=== PATIENT | female | born 1965 | race Caucasian/White ===

== ENCOUNTER 2016-03-20 05:59 | Emergency (ER) | payer BC, OTHER ==
[~2016-03-20] VITALS: Ht 177.8 cm; Wt 85.0 kg
[~2016-03-20 05:59] MED LIST: PHEN100 PO
[2016-03-20 06:01] VITALS: BP 163/92; PULSE 67; RESP 18; TEMP 97.7; O2SAT 95
[2016-03-20] MEDS ORDERED: DILA100C PO (06:05)
--- NOTE | 2016-03-20 06:18 | PD ---
HPI Chief Complaint: Alcohol/Drug Intoxication Time Seen by Provider: 06:08 Travel History International Travel<30 days: No Contact w/Intl Traveler<30days: No Traveled to known affect area: No History of Present Illness HPI The patient is a 51 year old female who presents to the [facility] emergency department with a history of reportedly calling ambulance services when she found [place] out on [address] and was cold. The patient reports that she went out to the main street celebrate her birthday yesterday. She reports that she had more drinks than usual. She reports that the last drink that she remembers is someone giving her Tequila shot. She reports that she woke up outside and was extremely cold. She reports that she has chronic pain in her right arm and right hip which were worse related to the cold. She reports that she has hardware in the right arm and she has been told that she needs a right hip replacement. The patient reports that she is currently homeless. The patient denies any recent fevers, worsening cough, congestion, neck pain, chest pain, shortness of breath, abdominal pain, vomiting, diarrhea, urinary symptoms, or other neurologic symptoms. [facility] Past Medical History Narrative Medical The patient's past medical history is significant for atraumatic brain injury in the , history of alcohol abuse, history of seizure disorder, history of chronic right arm pain, chronic right hip pain, arthritis. Hx Anticoagulant Therapy: No Blood Disorders: No Bipolar Disorder: Yes Anxiety: Yes Cancer: No Cardiovascular Problems: Yes Chemotherapy: No Chest Pain: Yes Cerebrovascular Accident: No Diabetes: No Diminished Hearing: Yes ([facility] RIGHT EAR) Gastrointestinal Disorders: No Genitourinary: Yes Headaches: Yes Hypertension: Yes Implanted Vascular Access Dvce: No Musculoskeletal: Yes Neurologic: Yes Psychiatric: Yes Reproductive: No Respiratory: No Immunizations Current: Yes Migraines: Yes Radiation Therapy: No Seizures: Yes Tetanus Vaccination: < 5 Years Influenza Vaccination: No PNEUMOCCOCAL Vaccine (Year): 3 ?: Not Menopausal: Yes : 3 Para: 0 Miscarriage: 0 : 3 Past Surgical History Narrative Surgical The patient's past surgical history is significant for right arm ORIF, a hysterectomy, cholecystectomy, pyloric stenosis surgery as an infant Abdominal Surgery: Yes (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 INFANT) AICD: No Arteriovenous Shunt: No Cholecystectomy: Yes Hysterectomy: Yes Insulin Pump: No Joint Replacement: No Pacemaker: No Other Surgery: Yes Social History Alcohol Use: Yes (a 6 pack daily.) Tobacco Use: Yes (1.5 PPD) Substance Use: No Allergies-Medications (Allergen,Severity, Reaction): Coded Allergies: Codeine (Verified Allergy, Severe, Nausea/Vomiting, 03/20/16) Reported Meds & Prescriptions Reported Meds & Active Scripts Active Reported Dilantin (Phenytoin Extended) 100 Mg Cap 300 Mg PO HS She reports that she has not been taking her Dilantin over the last year. Review of Systems Except as stated in HPI: all other systems reviewed are Neg General / Constitutional: No: Fever Eyes: No: Visual changes HENT: No: Headaches Cardiovascular: No: Chest Pain or Discomfort Respiratory: No: Shortness of Breath Gastrointestinal: No: Abdominal Pain Genitourinary: No: Dysuria Musculoskeletal: Positive: Arthralgias, Pain Skin: No Rash Neurologic: No: Weakness, Focal Abnormalities, Change in Mentation, Slurred Speech, Sensory Disturbance Psychiatric: No: Depression Endocrine: No: Polydipsia Hematologic/Lymphatic: No: Easy Bruising Physical Exam Narrative General: The patient is a well-developed well-nourished female in no acute distress. Head and Neck exam: Head is normocephalic atraumatic. Eyes: Pupils are equal round and reactive to light. Nose: Midline septum with pink mucous membranes Mouth: Dentition unremarkable. Moist mucus membranes. Posterior oropharynx is not erythematous. No tonsillar hypertrophy. Uvula midline. Airway patent. Neck: No palpable lymphadenopathy. No nuchal rigidity. No thyromegaly. Cardiovascular: Regular rate and rhythm without murmurs, gallops, or rubs. Lungs: Clear to auscultation bilaterally. No wheezes, rhonchi, or rales. Abdomen: Soft, without tenderness to palpation in all 4 quadrants of the abdomen. No guarding, rebound, or rigidity. Normal bowel sounds are audible. Extremities: No clubbing, cyanosis, or edema. 2+ pulses in all 4 extremities. No calf tenderness on palpation. Back: No costovertebral angle tenderness to palpation. Neurologic Exam: Grossly nonfocal. Skin Exam: No rash noted. Intact skin that is warm and dry. Data Data Last Documented VS Vital Signs Date Time Temp Pulse Resp B/P Pulse Ox O2 Delivery O2 Flow Rate FiO2 03/20/16 06:08 Room Air 03/20/16 06:01 97.7 67 18 163/92 95 MDM Medical Decision Making Medical Screen Exam Complete: Yes Emergency Medical Condition: No Medical Record Reviewed: Yes Differential Diagnosis Hypothermia, versus feeling cold related to being homeless, versus exacerbation of chronic pain. Narrative Course During the course of the patients emergency department visit, the patients history, examination, and differential diagnosis were reviewed with the patient. The patient was placed on a monitor tech with oximetry and blood pressure monitoring. The patient's initial temperature was noted to be 97.7. The patient's vital signs were otherwise unremarkable. The patient is awake and alert. The patient is oriented to person, place, time, and situation. The patient's main concern is that she is cold. She has no one available to drive her home. She reports that she is currently homeless. Case management was contacted regarding this patient's case. The patient will be provided information from case management regarding local shelters. The patient will also be given a taxi voucher or bus pass in order to be transported to a local group home. The patient was placed in a bed with warm blankets. The patient was instructed regarding the importance of decreasing her alcohol intake. The patient is resting comfortably and feels better, is alert and in no distress. The patients examination findings were discussed with the patient. The repeat examination is unremarkable and benign. The history, exam, diagnostic testing, and current condition do not suggest any significant pathology to warrant further testing, continued ED treatment, admission, or surgical evaluation at this point. The vital signs have been stable. The patient does not have uncontrollable pain, intractable vomiting, or other significant symptoms. The patient's condition is stable and appropriate for discharge. The patient will pursue further outpatient evaluation with a primary care physician or other designated or consulting physician as indicated in the discharge instructions. The patient expressed understanding and was agreeable with this plan. Diagnosis Primary Impression: Chronic pain of right upper extremity Additional Impression: Cold exposure Qualified Code: T69.9XXA - Cold exposure, initial encounter Referrals: [facility] Dept. Disposition: 01 DISCHARGE HOME Condition: Stable Crys Boucher MD Mar 20, 2016 06:18
[2016-03-20 10:05] VITALS: BP 116/77; PULSE 80; RESP 16; O2SAT 98
== END 2016-03-20 10:13 | disposition home or self-care (01) ==
LOC: NEPE 05:59
DX: G89.29 Other chronic pain (principal); M79.601 Pain in right arm; Z59.0 Homelessness
CPT/HCPCS: 99283

== ENCOUNTER 2016-06-20 21:07 | Emergency (ER) | payer BC, OTHER ==
[~2016-06-20 21:07] MED LIST changes: +DILA100C PO; -PHEN100 PO
[2016-06-20] MEDS ORDERED: SODIUM CHLORIDE 0.9% FLUSH 10 ML FLUSH IVF PRN (21:30)
[2016-06-20] MEDS ORDERED: SODIUM CHLOR 0.9% 1000 ML INJ 1,000 ML IV ONE (21:30)
[2016-06-20] MEDS ORDERED: LORazepam 2 MG/ML VIAL IV ONE (21:30)
--- NOTE | 2016-06-20 21:31 | PD ---
HPI Chief Complaint: Alcohol Intoxication Time Seen by Provider: 21:20 Travel History International Travel<30 days: No Contact w/Intl Traveler<30days: No History of Present Illness HPI Patient is a 51-year-old female who was brought to the emergency room for alcohol intoxication. As per EMS, patient was found at the bar today intoxicated, reports the patient had fallen 4 times today. Patient admits to drinking 84 packs of beer today, patient reports that she did fall today, denies trauma to head/neck. Reports that she thinks she reinjured her right ankle as she has history of right ankle pain for the past 18 years. Patient requesting x-ray of her right ankle this time. Patient reports that she is not on any anticoagulants at this time. Patient denies suicidal or homicidal ideations PFSH Past Medical History Hx Anticoagulant Therapy: No Blood Disorders: No Bipolar Disorder: Yes Anxiety: Yes Cancer: No Cardiovascular Problems: Yes Chemotherapy: No Chest Pain: Yes Cerebrovascular Accident: No Diabetes: No Diminished Hearing: Yes ([place] RIGHT EAR) Gastrointestinal Disorders: No Genitourinary: Yes Headaches: Yes Hypertension: Yes Implanted Vascular Access Dvce: No Musculoskeletal: Yes Neurologic: Yes Psychiatric: Yes Reproductive: No Respiratory: No Immunizations Current: Yes Migraines: Yes Radiation Therapy: No Seizures: Yes PNEUMOCCOCAL Vaccine (Year): 3 Menopausal: Yes : 3 Para: 0 Miscarriage: 0 : 3 Past Surgical History Abdominal Surgery: Yes (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 INFANT) AICD: No Arteriovenous Shunt: No Cholecystectomy: Yes Hysterectomy: Yes Insulin Pump: No Joint Replacement: No Pacemaker: No Other Surgery: Yes Social History Alcohol Use: Yes (a 6 pack daily.) Tobacco Use: Yes (1.5 PPD) Substance Use: No Allergies-Medications (Allergen,Severity, Reaction): Coded Allergies: Codeine (Verified Allergy, Severe, Nausea/Vomiting, 06/20/16) Reported Meds & Prescriptions Reported Meds & Active Scripts Active Reported Dilantin (Phenytoin Extended) 100 Mg Cap 300 Mg PO HS Review of Systems ROS Limitations: Intoxication Musculoskeletal: Positive: Pain (right ankle pain) Physical Exam Narrative GENERAL: Patient intoxicated SKIN: Focused skin assessment warm/dry. HEAD: Atraumatic. Normocephalic. EYES: Pupils equal and round. No scleral icterus. No injection or drainage. ENT: No nasal bleeding or discharge. Mucous membranes pink and moist. NECK: Trachea midline. No JVD. CARDIOVASCULAR: Regular rate and rhythm. No murmur appreciated. RESPIRATORY: No accessory muscle use. Clear to auscultation. Breath sounds equal bilaterally. GASTROINTESTINAL: Abdomen soft, non-tender, nondistended. Hepatic and splenic margins not palpable. MUSCULOSKELETAL: No obvious deformities. No clubbing. No cyanosis. No edema. Patient with pain with range of motion to the right ankle, no obvious deformities or fractures NEUROLOGICAL: Awake and alert. PSYCHIATRIC: Patient intoxicated, yelling and screaming at bedside Data Data Last Documented VS Vital Signs Date Time Temp Pulse Resp B/P Pulse Ox O2 Delivery O2 Flow Rate FiO2 06/20/16 22:00 97.6 79 18 126/92 95 Orders Complete Blood Count With Diff (06/20/16 21:23) Comprehensive Metabolic Panel (06/20/16 21:23) Iv Access Insert/Monitor (06/20/16 21:23) Ecg Monitoring (06/20/16 21:23) Psych Screen (06/20/16 21:23) Sodium Chloride 0.9% Flush (Ns Flush) (06/20/16 21:30) Lorazepam Inj (Ativan Inj) (06/20/16 21:30) Drug Screen, Random Urine (06/20/16 21:23) Alcohol (Ethanol) (06/20/16 21:23) Ct Brain W/O Iv Contrast(Rout) (06/20/16 21:23) Ankle, Complete (Ray9ezg) (06/20/16 ) Sodium Chlor 0.9% 1000 Ml Inj (Ns 1000 M (06/20/16 21:30) Labs Laboratory Tests Test 06/20/16 22:09 White Blood Count 5.3 TH/MM3 Red Blood Count 3.89 MIL/MM3 Hemoglobin 13.5 GM/DL Hematocrit 38.2 % Mean Corpuscular Volume 98.3 FL Mean Corpuscular Hemoglobin 34.7 PG Mean Corpuscular Hemoglobin 35.3 % Concent Red Cell Distribution Width 12.8 % Platelet Count 154 TH/MM3 Mean Platelet Volume 9.7 FL Neutrophils (%) (Auto) 44.6 % Lymphocytes (%) (Auto) 41.2 % Monocytes (%) (Auto) 9.6 % Eosinophils (%) (Auto) 3.5 % Basophils (%) (Auto) 1.1 % Neutrophils # (Auto) 2.3 TH/MM3 Lymphocytes # (Auto) 2.2 TH/MM3 Monocytes # (Auto) 0.5 TH/MM3 Eosinophils # (Auto) 0.2 TH/MM3 Basophils # (Auto) 0.1 TH/MM3 CBC Comment DIFF FINAL Differential Comment Sodium Level 142 MEQ/L Potassium Level 4.1 MEQ/L Chloride Level 106 MEQ/L Carbon Dioxide Level 29.8 MEQ/L Anion Gap 6 MEQ/L Blood Urea Nitrogen 7 MG/DL Creatinine 0.97 MG/DL Estimat Glomerular Filtration 60 ML/MIN Rate Random Glucose 93 MG/DL Calcium Level 8.2 MG/DL Total Bilirubin 0.3 MG/DL Aspartate Amino Transf 114 U/L (AST/SGOT) Alanine Aminotransferase 119 U/L (ALT/SGPT) Alkaline Phosphatase 84 U/L Total Protein 8.9 GM/DL Albumin 4.1 GM/DL Ethyl Alcohol Level 293 MG/DL [facility] Medical Decision Making Medical Screen Exam Complete: Yes Emergency Medical Condition: Yes Differential Diagnosis Alcohol intoxication, intracranial hemorrhage, electrolyte abnormality, ankle sprain versus ankle fracture vs chronic ankle pain Narrative Course Patient is a 51-year-old female with history of alcoholism, presents to emergency room intoxicated. As per EMS, patient drank 8- 4 packs of beer today. Patient was found intoxicated at a bar, reports that she had fallen a few times today and was complaining of right-sided ankle pain. Patient intoxicated while the emergency room, she denies any trauma the head or neck, she is heavily intoxicated. Plan to obtain CT of the head to rule out intracranial hemorrhage. Plan to x-ray her ankle to evaluate for possible fracture. Will administer IV fluids as well as Ativan as patient is yelling and screaming while in the emergency room and require sedation. Diagnosis Primary Impression: Alcohol intoxication Qualified Code: F10.120 - Alcohol intoxication, uncomplicated Additional Impression: High ankle sprain of right lower extremity Qualified Code: S93.431A - High ankle sprain of right lower extremity, initial encounter Patient Instructions: General Instructions Additional Instructions: Please drink alcohol responsibly Return to ER if symptoms worsen or progress Please follow up with your primary care doctor Lianne Avila DO June 20, 2016 21:31
--- NOTE | 2016-06-20 21:46 | RADRPT ---
EXAM DATE/TIME: 06/20/2016 21:34 [facility] COMPARISON: No previous studies available for comparison. INDICATIONS : Right ankle pain post fall. MEDICAL HISTORY : None. SURGICAL HISTORY : None. ENCOUNTER: Initial ACUITY: 1 day PAIN SCORE: 10/10 LOCATION: Right ankle. FINDINGS: Three view exam was performed of the right ankle. The bony structures are in normal alignment. No e vidence of fracture, dislocation, or soft tissue swelling. The ankle mortise is intact. No radiopaq ue foreign bodies are seen. Bony mineralization is normal. CONCLUSION: Negative trauma study. Mark Gonzalez MD on June 20, 2016 at 21:41 Board Certified Radiologist. This report was verified electronically.
[2016-06-20 22:00] VITALS: BP 126/92; PULSE 79; RESP 18; TEMP 97.6; O2SAT 95
--- NOTE | 2016-06-20 22:00 | RADRPT ---
EXAM DATE/TIME: 06/20/2016 21:44 [facility] COMPARISON: CT BRAIN W/O CONTRAST, August 31, 2015, 2:07. INDICATIONS : Trauma. Fall. RADIATION DOSE: 41.34 CTDIvol (mGy) MEDICAL HISTORY : Cardiovascular disease. Hypertension. Seizures. SURGICAL HISTORY : Hysterectomy. Cholecystectomy. ENCOUNTER: Initial ACUITY: 1 day PAIN SCALE: 0/10 LOCATION: Head. TECHNIQUE: Multiple contiguous axial images were obtained of the head. Using automated exposure control and adj ustment of the mA and/or kV according to patient size, radiation dose was kept as low as reasonably a chievable to obtain optimal diagnostic quality images. FINDINGS: CEREBRUM: The ventricles are normal for age. No evidence of midline shift, mass lesion, hemorrhage or acute in farction. No extra-axial fluid collections are seen. POSTERIOR FOSSA: The cerebellum and brainstem are intact. The 4th ventricle is midline. The cerebellopontine angle i s unremarkable. EXTRACRANIAL: The visualized portion of the orbits is intact. SKULL: The calvaria is intact. No evidence of skull fracture. CONCLUSION: Negative trauma CT. Mark Gonzalez MD on June 20, 2016 at 21:58 Board Certified Radiologist. This report was verified electronically.
[2016-06-20 22:21] LABS: AUTOMATED NEUTROPHIL # 2.3 TH/MM3 (1.8-7.7); BASOPHIL # 0.1 TH/MM3 (0-0.2); BASOPHIL % 1.1 % (0.0-2.0); EOSINOPHIL # 0.2 TH/MM3 (0-0.4); EOSINOPHIL % 3.5 % (0.0-4.0); HEMATOCRIT 38.2 % (35.0-46.0); HEMO FLAGS DIFF FINAL; LYMPH % 41.2 % (9.0-44.0); LYMPHOCYTE # 2.2 TH/MM3 (1.0-4.8); MEAN CELL VOLUME 98.3 FL (80.0-100.0); MEAN CORPUSCULAR HEMOGLOBIN 34.7 PG (27.0-34.0); MEAN CORPUSCULAR HGB CONC 35.3 % (32.0-36.0); MONO % 9.6 % (0.0-8.0); NEUT % 44.6 % (16.0-70.0); PLATELET COUNT 154 TH/MM3 (150-450); RED BLOOD COUNT 3.89 MIL/MM3 (4.00-5.30); RED CELL DISTRIBUTION WIDTH 12.8 % (11.6-17.2); WHITE BLOOD COUNT 5.3 TH/MM3 (4.0-11.0)
[2016-06-20 22:57] LABS: ALKALINE PHOSPHATASE 84 U/L (45-117); ALT (GPT) 119 U/L (10-53); ANION GAP 6 MEQ/L (5-15); AST (GOT) 114 U/L (15-37); BICARBONATE 29.8 MEQ/L (21.0-32.0); BLOOD UREA NITROGEN 7 MG/DL (7-18); CHLORIDE 106 MEQ/L (98-107); GLOMERULAR FILTRATION RATE 60 ML/MIN (>89); POTASSIUM 4.1 MEQ/L (3.5-5.1); SODIUM (NA) 142 MEQ/L (136-145); TOTAL BILIRUBIN ADULT 0.3 MG/DL (0.2-1.0)
[2016-06-21 01:00] VITALS: PULSE 74; RESP 16; O2SAT 96
[2016-06-21 06:18] VITALS: BP 116/75; PULSE 67; RESP 17; O2SAT 94
== END 2016-06-21 06:54 | disposition home or self-care (01) ==
LOC: NEPD 21:07
DX: F10.120 Alcohol abuse with intoxication, uncomplicated (principal); Y90.8 Blood alcohol level of 240 mg/100 ml or more; S93.431A Sprain of tibiofibular ligament of right ankle, initial encounter; W19.XXXA Unspecified fall, initial encounter; Z79.899 Other long term (current) drug therapy
CPT/HCPCS: 70450; 73610; 80053; 80307; 85025; 96361; 96374; 99284; J2060; J7030

== ENCOUNTER 2016-07-23 18:31 | Emergency (ER) | payer OTHER ==
[~2016-07-23] VITALS: Ht 154.9 cm; Wt 55.0 kg
[2016-07-23 18:33] VITALS: BP 130/87; PULSE 79; RESP 16; TEMP 98.2; O2SAT 99
== END 2016-07-23 19:22 | disposition left against medical advice (07) ==
LOC: NED 18:31
DX: R52 Pain, unspecified (principal)
CPT/HCPCS: 99281

== ENCOUNTER 2016-08-03 15:43 | Emergency (ER) | payer OTHER ==
[~2016-08-03] VITALS: Ht 165.1 cm; Wt 80.0 kg
[2016-08-03 15:46] VITALS: BP 145/90; PULSE 77; RESP 16; O2SAT 97
[2016-08-03] MEDS ORDERED: KETOROLAC TROMETHAMINE 60 MG/2 ML (IM) VIAL IM ONE (16:30)
--- NOTE | 2016-08-03 16:41 | PD ---
HPI Chief Complaint: Pain: Acute or Chronic Time Seen by Provider: 16:00 Travel History International Travel<30 days: No Contact w/Intl Traveler<30days: No Traveled to known affect area: No History of Present Illness HPI Patient comes in complaining of right ankle pain has been worse over the past 8 days. Patient states she falls frequently does not specifically remember injuring it. Patient denies hitting her head, chest pain, shortness of breath, loss consciousness, nausea, vomiting, abdominal pain, chest pain, shortness breath, fevers, or numbness or tingling anywhere. Patient states she drinks to deal with her chronic pain. Patient states he last drank approximately hour prior to coming to the emergency department. Patient denies anything else for this. Patient states pain is worse with walking and when it rains. PFSH Past Medical History Hx Anticoagulant Therapy: No Blood Disorders: No Bipolar Disorder: Yes Anxiety: Yes Cancer: No Cardiovascular Problems: Yes Chemotherapy: No Chest Pain: Yes Cerebrovascular Accident: No Diabetes: No Diminished Hearing: Yes ([facility] RIGHT EAR) Gastrointestinal Disorders: No Genitourinary: Yes Headaches: Yes Hypertension: Yes Implanted Vascular Access Dvce: No Musculoskeletal: Yes Neurologic: Yes Psychiatric: Yes Reproductive: No Respiratory: No Immunizations Current: Yes Migraines: Yes Radiation Therapy: No Seizures: Yes PNEUMOCCOCAL Vaccine (Year): 3 ?: Not Menopausal: Yes : 3 Para: 0 Miscarriage: 0 : 3 Past Surgical History Abdominal Surgery: Yes (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 INFANT) AICD: No Arteriovenous Shunt: No Cholecystectomy: Yes Hysterectomy: Yes Insulin Pump: No Joint Replacement: No Pacemaker: No Other Surgery: Yes Social History Alcohol Use: Yes (a 6 pack daily.) Tobacco Use: Yes (1.5 PPD) Substance Use: No Allergies-Medications (Allergen,Severity, Reaction): Coded Allergies: Codeine (Verified Allergy, Severe, Nausea/Vomiting, 08/03/16) Reported Meds & Prescriptions Reported Meds & Active Scripts Active No Active Prescriptions or Reported Medications Review of Systems Except as stated in HPI: all other systems reviewed are Neg Physical Exam Narrative GENERAL: Well-developed, overly nourished, in no acute distress, and non-ill appearing. SKIN: Focused skin assessment warm and dry. HEAD: Atraumatic. Normocephalic. EYES: Pupils equal and round. EOMI. No scleral icterus. No injection or drainage. ENT: No nasal bleeding or discharge. Mucous membranes pink and moist. NECK: Trachea midline. Supple. No nuclear rigidity. CARDIOVASCULAR: Dorsal pulses 2+, intact, equal bilaterally. Capillary refill less than 2 seconds. RESPIRATORY: No accessory muscle use. No respiratory distress. MUSCULOSKELETAL: No obvious deformities. No clubbing. No cyanosis. No edema. Full range of motion. Mild soft tissue swelling noted right ankle. Ankle: Neagative anterior draw and Jane test. Negative Robert's sign. No laxity noted with passive inversion and eversion of BL ankles. Negative squeeze test. Pulses equal BL distal to injury. Capillary refill less than 2 seconds distal to injury and equal BL. Sensation equal BL 1st web space. FROM of toes distal to injury and equal BL. NV intact distal to injury and equal BL. Dorsal pulses equal BL. Patient ambulating around room. NEUROLOGICAL: Awake and alert. No obvious cranial nerve deficits. Motor grossly within normal limits. Normal speech. PSYCHIATRIC: Appropriate mood and affect; insight and judgment normal. Data Data Last Documented VS Vital Signs Date Time Temp Pulse Resp B/P Pulse Ox O2 Delivery O2 Flow Rate FiO2 08/03/16 17:00 88 16 152/90 98 Room Air Orders Ankle, Complete ([id number]) (08/03/16 ) Ketorolac Inj (Toradol Inj) (08/03/16 16:30) Splint Or Brace Apply/Monitor (08/03/16 17:30) [facility] Medical Decision Making Medical Screen Exam Complete: Yes Emergency Medical Condition: Yes Interpretation(s) Right ankle x-ray read by the radiologist shows: 1. Soft tissue swelling involving the medial malleolus and to a lesser extent the lateral malleolus. 2. No acute fracture or dislocation. Differential Diagnosis Sprain, fracture, dislocation, other Narrative Course There is no clinical evidence for fracture. There is no clinical evidence to suspect bony injury by exam. Radiographic examination revealed no fracture seen at this time. No obvious ligamental injury or internal derangement is noted at this time. The distal extremity appears neurovascularly intact, without evidence of neurovascular injury nor compartment syndrome. Tendon exam also was intact. The effected limb was splinted. The patient was discharged with sprain and splint care instructions and given warnings for vascular compromise. The patient is to follow up with primary care doctor, primary care clinic, and/or Orthopedics. The patient agrees with plan. Patient in no obvious distress upon re-evaluation and reports improvement status post Dennis wrap and stirrup splint. Patient denies any other new complaints. All pertinent Radiology result(s) discussed with patient. Any questions/concerns in reference to patient diagnosis/condition discussed and clarified prior to patient's discharge. Reinforced sheer importance of close follow up with patient's primary physician or primary care clinic. Instructed patient to return to ED immediately, if symptoms return/worsen. Pt showed understanding of above instructions. Further instructions and recommendations were detailed in discharge paperwork. Pt left without difficulty out of ED at discharge in her wheelchair. Diagnosis Primary Impression: Right ankle sprain Qualified Code: S93.401A - Sprain of right ankle, unspecified ligament, initial encounter Additional Impression: Alcohol abuse Referrals: [facility] Patient Instructions: Ankle Sprain (ED), Ankle Sprain Exercises (GEN), Ankle Stirrup Splint (ED), General Instructions Additional Instructions: Follow-up with your primary care physician and/or orthopedic in 3-5 days for reevaluation. Use [id number] Tylenol and/or ibuprofen as needed for pain. Follow instructions on the packaging. Apply ice affected area 20 minutes prior to me for pain. Stop drinking. Follow-up with K[facility] Zhang for detox. Return to the emergency department if symptoms get worse. Scripts No Active Prescriptions or Reported Meds Disposition: 01 DISCHARGE HOME Condition: Stable Sal Mckee Aug 03, 2016 16:41
[2016-08-03 17:00] VITALS: BP 152/90; PULSE 88; RESP 16; O2SAT 98
--- NOTE | 2016-08-03 17:24 | RADRPT ---
EXAM DATE/TIME: 08/03/2016 16:40 [facility] COMPARISON: ANKLE RIGHT COMPLETE ([id number]), June 20, 2016, 21:34. INDICATIONS : Right ankle pain, swelling for 8 days MEDICAL HISTORY : None. SURGICAL HISTORY : None. ENCOUNTER: Initial ACUITY: 1 week PAIN SCORE: 10/10 LOCATION: Right entire ankle FINDINGS: Soft tissue swelling is noted involving the medial malleolus and to a much lesser extent the lateral malleolus. There is no acute fracture or dislocation of the right ankle. The ankle mortise is intac t. CONCLUSION: 1. Soft tissue swelling involving the medial malleolus and to a lesser extent the lateral malleolus. 2. No acute fracture or dislocation. Isacc Diamond MD on August 03, 2016 at 17:17 Board Certified Radiologist. This report was verified electronically.
== END 2016-08-03 18:42 | disposition home or self-care (01) ==
LOC: NEPE 15:43
DX: S93.401A Sprain of unspecified ligament of right ankle, initial encounter (principal); I10 Essential (primary) hypertension; F17.210 Nicotine dependence, cigarettes, uncomplicated; F10.10 Alcohol abuse, uncomplicated; R29.6 Repeated falls; X58.XXXA Exposure to other specified factors, initial encounter; Y93.9 Activity, unspecified; Y92.9 Unspecified place or not applicable; Y99.8 Other external cause status
CPT/HCPCS: 73610; 99283; L1906

== ENCOUNTER 2016-08-10 17:50 | Emergency (ER) | payer OTHER ==
[~2016-08-10] VITALS: Ht 177.8 cm; Wt 85.0 kg
[2016-08-10 18:04] VITALS: BP 132/77; PULSE 85; RESP 18; TEMP 98.2; O2SAT 97
--- NOTE | 2016-08-10 18:36 | PD ---
HPI Chief Complaint: Musculoskeletal Complaint Time Seen by Provider: 18:36 Travel History International Travel<30 days: No Contact w/Intl Traveler<30days: No Traveled to known affect area: No History of Present Illness HPI 49-year-old female presents to the ED for evaluation of seizure and shoulder pain. Per EMS the patient was awake and talking while claiming to be seizing. On arrival the patient refused to answer any questions regarding the history of present illness. She repeatedly yells out "suck my ankur." She becomes quite aggressive, climbing out of the stretcher and charging at this provider. PFSH Past Medical History Hx Anticoagulant Therapy: No Blood Disorders: No Bipolar Disorder: Yes Anxiety: Yes Cancer: No Cardiovascular Problems: Yes Chemotherapy: No Chest Pain: Yes Cerebrovascular Accident: No Diabetes: No Diminished Hearing: Yes ([facility] RIGHT EAR) Gastrointestinal Disorders: No Genitourinary: Yes Headaches: Yes Hypertension: Yes Implanted Vascular Access Dvce: No Musculoskeletal: Yes Neurologic: Yes Psychiatric: Yes Reproductive: No Respiratory: No Immunizations Current: Yes Migraines: Yes Radiation Therapy: No Seizures: Yes Influenza Vaccination: No PNEUMOCCOCAL Vaccine (Year): 3 ?: Not Menopausal: Yes : 3 Para: 0 Miscarriage: 0 : 3 Past Surgical History Abdominal Surgery: Yes (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 ) AICD: No Arteriovenous Shunt: No Cholecystectomy: Yes Hysterectomy: Yes Insulin Pump: No Joint Replacement: No Pacemaker: No Other Surgery: Yes Social History Alcohol Use: Yes (a 6 pack daily.) Tobacco Use: Yes (1.5 PPD) Substance Use: No Allergies-Medications (Allergen,Severity, Reaction): Coded Allergies: Codeine (Verified Allergy, Severe, Nausea/Vomiting, 08/03/16) Reported Meds & Prescriptions Reported Meds & Active Scripts Active No Active Prescriptions or Reported Medications Review of Systems ROS Limitations: Uncooperative, Combative, Other: Except as stated in HPI: all other systems reviewed are Neg Physical Exam Narrative GENERAL: Well-nourished, well-developed patient. Alert. SKIN: Focused skin assessment warm/dry. HEAD: Normocephalic. EYES: No scleral icterus. No injection or drainage. NECK: Unable to obtain CARDIOVASCULAR: Unable to obtain RESPIRATORY: Unable to obtain GASTROINTESTINAL: Unable to obtain MUSCULOSKELETAL: No cyanosis, or edema. Stands and walks with a steady gait. BACK: No obvious deformity. Data Data Last Documented VS Vital Signs Date Time Temp Pulse Resp B/P Pulse Ox O2 Delivery O2 Flow Rate FiO2 08/10/16 18:04 98.2 85 18 132/77 97 MDM Medical Decision Making Medical Screen Exam Complete: Yes Emergency Medical Condition: Yes Differential Diagnosis Acute alcohol intoxication versus malingering versus musculoskeletal pain versus less likely seizure versus other Narrative Course 49-year-old female presents to the ED for evaluation of seizure and shoulder pain. Per EMS the patient was awake and talking while claiming to be seizing. On arrival the patient refused to answer any questions regarding the history of present illness. She repeatedly yells out "suck my ankur." She becomes quite aggressive, climbing out of the stretcher and charging at this provider. Vitals reviewed. The patient appears intoxicated. She is combative and refusing to cooperate with the exam. She is walking topless through the hallway. She repeatedly states that she wants to leave. Security was called to the area secondary to her aggressive behavior. Ultimately, the patient left AGAINST MEDICAL ADVICE before a complete examination could be performed. Review of the record reveals patient has had several visits that ended similarly. Diagnosis Primary Impression: Acute alcohol intoxication Qualified Code: F10.920 - Acute alcohol intoxication, uncomplicated Additional Impression: Left against medical advice Scripts No Active Prescriptions or Reported Meds Disposition: 07 AGAINST MEDICAL ADVICE Erica Peterson Aug 10, 2016 18:36
== END 2016-08-10 19:36 | disposition left against medical advice (07) ==
LOC: NEPD 17:50
DX: F10.120 Alcohol abuse with intoxication, uncomplicated (principal)
CPT/HCPCS: 99283

== ENCOUNTER 2016-08-17 15:44 | Emergency (ER) | payer OTHER ==
[~2016-08-17] VITALS: Ht 165.1 cm; Wt 70.0 kg
[2016-08-17 17:00] VITALS: BP 110/65; PULSE 70; RESP 18; O2SAT 98
== END 2016-08-17 17:16 | disposition left against medical advice (07) ==
LOC: NEDAMB 15:44 → NEPE 17:16
DX: R56.9 Unspecified convulsions (principal); Z53.21 Procedure and treatment not carried out due to patient leaving prior to being seen by health care provider
CPT/HCPCS: 99281

== ENCOUNTER 2016-08-18 13:24 | Emergency (ER) | payer OTHER ==
[~2016-08-18] VITALS: Ht 175.3 cm; Wt 100.0 kg
[2016-08-18 13:32] VITALS: BP 138/93; PULSE 73; RESP 18; TEMP 98.6; O2SAT 95
[2016-08-18] MEDS ORDERED: SODIUM CHLOR 0.9% 1000 ML INJ 1,000 ML IV ONE (13:41)
[2016-08-18 13:44] VITALS: RESP 18; O2SAT 97
[2016-08-18] MEDS ORDERED: SODIUM CHLORIDE 0.9% FLUSH 10 ML FLUSH IVF PRN (13:45)
[2016-08-18 14:02] LABS: AUTOMATED NEUTROPHIL # 3.6 TH/MM3 (1.8-7.7); BASOPHIL % 0.7 % (0.0-2.0); EOSINOPHIL # 0.2 TH/MM3 (0-0.4); EOSINOPHIL % 3.4 % (0.0-4.0); HEMATOCRIT 39.2 % (35.0-46.0); HEMO FLAGS DIFF FINAL; LYMPHOCYTE # 1.7 TH/MM3 (1.0-4.8); MEAN CELL VOLUME 99.3 FL (80.0-100.0); MEAN CORPUSCULAR HGB CONC 34.2 % (32.0-36.0); MONO % 7.6 % (0.0-8.0); NEUT % 59.3 % (16.0-70.0); PLATELET COUNT 171 TH/MM3 (150-450); RED BLOOD COUNT 3.95 MIL/MM3 (4.00-5.30); RED CELL DISTRIBUTION WIDTH 14.4 % (11.6-17.2)
[2016-08-18 14:12] LABS: BICARBONATE 24.7 MEQ/L (21.0-32.0); POTASSIUM 3.8 MEQ/L (3.5-5.1)
--- NOTE | 2016-08-18 14:21 | PD ---
HPI Chief Complaint: Seizure Time Seen by Provider: 13:35 Travel History International Travel<30 days: No Contact w/Intl Traveler<30days: No Traveled to known affect area: No History of Present Illness HPI The patient's 51. She was arrested today for trespassing evidently outside of a homeless retirement. She had a seizure in the back of the police car leading to her ER evaluation. She states she stopped taking Dilantin due to GI side effects. She has not taken Dilantin Her for years. She drinks daily a her chronic right shoulder pain. Location neurologic and generalized. Severity moderate. Timing resolved. Pt states her main complaint is hunger at end of interview. PFSH Past Medical History Hx Anticoagulant Therapy: No Blood Disorders: No Bipolar Disorder: Yes Anxiety: Yes Cancer: No Cardiovascular Problems: Yes Chemotherapy: No Chest Pain: Yes Cerebrovascular Accident: No Diabetes: No Diminished Hearing: Yes ([place]AR) Gastrointestinal Disorders: No Genitourinary: Yes Headaches: Yes Hypertension: Yes Implanted Vascular Access Dvce: No Musculoskeletal: Yes Neurologic: Yes Psychiatric: Yes Reproductive: No Respiratory: No Immunizations Current: Yes Migraines: Yes Radiation Therapy: No Seizures: Yes Tetanus Vaccination: < 5 Years Influenza Vaccination: Yes PNEUMOCCOCAL Vaccine (Year): 3 ?: Not Menopausal: Yes : 3 Para: 0 Miscarriage: 0 : 3 Past Surgical History Abdominal Surgery: Yes (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 ) AICD: No Arteriovenous Shunt: No Cholecystectomy: Yes Hysterectomy: Yes Insulin Pump: No Joint Replacement: No Pacemaker: No Other Surgery: Yes Social History Alcohol Use: Yes (a 6 pack daily.) Tobacco Use: Yes (1.5 PPD) Substance Use: No Allergies-Medications (Allergen,Severity, Reaction): Coded Allergies: Codeine (Verified Allergy, Severe, Nausea/Vomiting, 08/18/16) Reported Meds & Prescriptions Reported Meds & Active Scripts Active No Active Prescriptions or Reported Medications Review of Systems Except as stated in HPI: all other systems reviewed are Neg Physical Exam Narrative GENERAL: 51-year-old female pleasant well-nourished well-developed SKIN: Focused skin assessment warm/dry. HEAD: Atraumatic. Normocephalic. EYES: Pupils equal and round. No scleral icterus. No injection or drainage. ENT: No nasal bleeding or discharge. Mucous membranes pink and moist. NECK: Trachea midline. No JVD. CARDIOVASCULAR: Regular rate and rhythm. No murmur appreciated. RESPIRATORY: No accessory muscle use. Clear to auscultation. Breath sounds equal bilaterally. GASTROINTESTINAL: Abdomen soft, non-tender, nondistended. Hepatic and splenic margins not palpable. MUSCULOSKELETAL: No obvious deformities. No clubbing. No cyanosis. No edema. NEUROLOGICAL: Awake and alert. No obvious cranial nerve deficits. Motor grossly within normal limits. Normal speech. PSYCHIATRIC: Appropriate mood and affect; insight and judgment normal. Data Data Last Documented VS Vital Signs Date Time Temp Pulse Resp B/P Pulse Ox O2 Delivery O2 Flow Rate FiO2 08/18/16 13:44 18 97 Room Air 08/18/16 13:39 77 08/18/16 13:32 98.6 138/93 vital signs reviewed Orders Complete Blood Count With Diff (08/18/16 13:41) Basic Metabolic Panel (Bmp) (08/18/16 13:41) Alcohol (Ethanol) (08/18/16 13:41) Blood Glucose (08/18/16 13:41) Ecg Monitoring (08/18/16 13:41) Iv Access Insert/Monitor (08/18/16 13:41) Oximetry (08/18/16 13:41) Sodium Chlor 0.9% 1000 Ml Inj (Ns 1000 M (08/18/16 13:41) Sodium Chloride 0.9% Flush (Ns Flush) (08/18/16 13:45) Labs Laboratory Tests Test 08/18/16 13:45 White Blood Count 6.0 TH/MM3 Red Blood Count 3.95 MIL/MM3 Hemoglobin 13.4 GM/DL Hematocrit 39.2 % Mean Corpuscular Volume 99.3 FL Mean Corpuscular Hemoglobin 34.0 PG Mean Corpuscular Hemoglobin 34.2 % Concent Red Cell Distribution Width 14.4 % Platelet Count 171 TH/MM3 Mean Platelet Volume 9.8 FL Neutrophils (%) (Auto) 59.3 % Lymphocytes (%) (Auto) 29.0 % Monocytes (%) (Auto) 7.6 % Eosinophils (%) (Auto) 3.4 % Basophils (%) (Auto) 0.7 % Neutrophils # (Auto) 3.6 TH/MM3 Lymphocytes # (Auto) 1.7 TH/MM3 Monocytes # (Auto) 0.5 TH/MM3 Eosinophils # (Auto) 0.2 TH/MM3 Basophils # (Auto) 0.0 TH/MM3 CBC Comment DIFF FINAL Differential Comment Sodium Level 141 MEQ/L Potassium Level 3.8 MEQ/L Chloride Level 108 MEQ/L Carbon Dioxide Level 24.7 MEQ/L Anion Gap 8 MEQ/L Blood Urea Nitrogen 10 MG/DL Creatinine 0.78 MG/DL Estimat Glomerular Filtration 78 ML/MIN Rate Random Glucose 72 MG/DL Calcium Level 8.5 MG/DL Ethyl Alcohol Level 205 MG/DL [facility] Medical Decision Making Medical Screen Exam Complete: Yes Emergency Medical Condition: Yes Medical Record Reviewed: Yes Differential Diagnosis Seizure, medication noncompliance, alcoholism, alcohol withdrawal Narrative Course CBC & BMP Diagram 08/18/16 13:45 Alcohol level is 205 The patient is resting comfortably and feels better, is alert and in no distress. The patients results and examination findings were discussed. The repeat examination is unremarkable and benign. The history, exam, diagnostic testing, and current condition do not suggest any significant pathology to warrant further testing, continued ED treatment, admission, or surgical evaluation at this point. The vital signs have been stable. The patient does not have uncontrollable pain, intractable vomiting, or other significant symptoms. The patient's condition is stable and appropriate for discharge. The patient will pursue further outpatient evaluation with a primary care physician or other designated or consulting physician as indicated in the discharge instructions. The patient expressed understanding and was agreeable with this plan. Diagnosis Primary Impression: Alcohol intoxication Qualified Code: F10.920 - Alcohol intoxication, uncomplicated Additional Impression: Seizure Referrals: [facility] 2 days [facility] 1 day Additional Instructions: You have a choice when it comes to health care, and we are glad that you chose [facility]. Hopefully, we have met your expectations on today's visit. You are welcome to return to [facility] at any time, as we are committed to meeting the health care needs of our community. Med/Other Pt SpecificInfo: Prescription(s) given Scripts No Active Prescriptions or Reported Meds Disposition: 01 DISCHARGE HOME Condition: Manny Estrada MD Aug 18, 2016 14:21
== END 2016-08-18 17:04 | disposition home or self-care (01) ==
LOC: NEPC 13:24
DX: F10.929 Alcohol use, unspecified with intoxication, unspecified (principal); I10 Essential (primary) hypertension; F17.210 Nicotine dependence, cigarettes, uncomplicated; Y90.7 Blood alcohol level of 200-239 mg/100 ml
CPT/HCPCS: 80048; 80307; 85025; 99284; J7030

== ENCOUNTER 2016-08-20 21:53 | Emergency (ER) | payer OTHER ==
[~2016-08-20] VITALS: Ht 167.6 cm; Wt 78.0 kg
--- NOTE | 2016-08-20 22:03 | PD ---
HPI Chief Complaint: intoxication Time Seen by Provider: 22:03 Travel History International Travel<30 days: No Contact w/Intl Traveler<30days: No Traveled to known affect area: No History of Present Illness HPI 51-year-old female, well-known to her emergency department, presents to emergency department today for evaluation of intoxication. Patient was found lying on the side of the road, intoxicated. A bystander contacted [facility]. She was brought into the emergency department. Patient states that she is tired and needs a place to sleep. She is requesting a blanket and a "yang." Patient denies any trauma. Denies chest tightness. Difficulty breathing. No other symptoms to report at this time. PFSH Past Medical History Hx Anticoagulant Therapy: No Blood Disorders: No Bipolar Disorder: Yes Anxiety: Yes Cancer: No Cardiovascular Problems: Yes Chemotherapy: No Chest Pain: Yes Cerebrovascular Accident: No Diabetes: No Diminished Hearing: Yes ([facility] RIGHT EAR) Gastrointestinal Disorders: No Genitourinary: Yes Headaches: Yes Hypertension: Yes Implanted Vascular Access Dvce: No Musculoskeletal: Yes Neurologic: Yes Psychiatric: Yes Reproductive: No Respiratory: No Immunizations Current: Yes Migraines: Yes Radiation Therapy: No Seizures: Yes PNEUMOCCOCAL Vaccine (Year): 3 Menopausal: Yes : 3 Para: 0 Miscarriage: 0 : 3 Past Surgical History Abdominal Surgery: Yes (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 INFANT) AICD: No Arteriovenous Shunt: No Cholecystectomy: Yes Hysterectomy: Yes Insulin Pump: No Joint Replacement: No Pacemaker: No Other Surgery: Yes Social History Alcohol Use: Yes (a 6 pack daily.) Tobacco Use: Yes (1.5 PPD) Substance Use: No Allergies-Medications (Allergen,Severity, Reaction): Coded Allergies: Codeine (Verified Allergy, Severe, Nausea/Vomiting, 08/18/16) Reported Meds & Prescriptions Reported Meds & Active Scripts Active Active Prescriptions or Reported Medications Unobtainable Review of Systems ROS Limitations: Intoxication Except as stated in HPI: all other systems reviewed are Neg Physical Exam Exam Limitations: Intoxication Narrative GENERAL: Unkempt but well-nourished female patient, clinically intoxicated with slurred speech and strong smell of alcohol but in no acute distress. SKIN: Focused skin assessment warm/dry. HEAD: Atraumatic. Normocephalic. EYES: Cataract over the left eye No scleral icterus. No injection or drainage. ENT: No nasal bleeding or discharge. Mucous membranes pink and moist. NECK: Trachea midline. No JVD. CARDIOVASCULAR: Regular rate and rhythm. No murmur appreciated. RESPIRATORY: No accessory muscle use. Clear to auscultation. Breath sounds equal bilaterally. GASTROINTESTINAL: Abdomen soft, non-tender, nondistended. Hepatic and splenic margins not palpable. MUSCULOSKELETAL: No obvious deformities. No clubbing. No cyanosis. No edema. NEUROLOGICAL: Awake and alert. No obvious cranial nerve deficits. Motor grossly within normal limits. Slurred speech Data Data Last Documented VS Vital Signs Date Time Temp Pulse Resp B/P Pulse Ox O2 Delivery O2 Flow Rate FiO2 08/20/16 22:18 98.0 60 16 147/67 98 MDM Medical Decision Making Medical Screen Exam Complete: Yes Emergency Medical Condition: Yes Medical Record Reviewed: Yes Differential Diagnosis Intoxication versus polysubstance abuse versus mood disorder versus personality disorder versus adjustment reaction disorder Narrative Course 51-year-old female with long-standing history of alcohol abuse presents to the emergency department for evaluation intoxication. Patient admits drinking alcohol. She is clinically intoxicated. She has no acute medical concerns or needs at this time. She'll be observed until she is clinically sober at which time she'll be discharged. Patient is accompanied by her walker. Diagnosis Primary Impression: Acute alcohol intoxication Qualified Code: F10.929 - Acute alcohol intoxication, with unspecified complication Referrals: [facility] (Out patient) Patient Instructions: Abuse of Alcohol (ED), General Instructions Additional Instructions: Consume alcohol in moderation Follow-up with primary care provider Return immediately with any acute worsening symptoms Med/Other Pt SpecificInfo: No Change to Meds Scripts No Active Prescriptions or Reported Meds Disposition: 01 DISCHARGE HOME Condition: Stable Narcisa Montemayor LAKESHIA Aug 20, 2016 22:03
[2016-08-20 22:18] VITALS: BP 147/67; PULSE 60; RESP 16; TEMP 98; O2SAT 98
== END 2016-08-21 06:37 | disposition home or self-care (01) ==
LOC: NEPD 21:53
DX: F10.929 Alcohol use, unspecified with intoxication, unspecified (principal); F31.9 Bipolar disorder, unspecified; I10 Essential (primary) hypertension; F17.210 Nicotine dependence, cigarettes, uncomplicated; Y90.9 Presence of alcohol in blood, level not specified
CPT/HCPCS: 99283

== ENCOUNTER 2016-08-22 17:29 | Emergency (ER) | payer OTHER ==
[~2016-08-22] VITALS: Ht 177.8 cm; Wt 84.0 kg
[2016-08-22 17:55] VITALS: BP 136/88; PULSE 95; RESP 20; TEMP 98.7; O2SAT 95
== END 2016-08-22 18:40 | disposition left against medical advice (07) ==
LOC: NED 17:29
DX: R53.1 Weakness (principal); Z53.29 Procedure and treatment not carried out because of patient's decision for other reasons
CPT/HCPCS: 99281

== ENCOUNTER 2016-09-04 16:32 | Emergency (ER) | payer OTHER ==
[~2016-09-04] VITALS: Ht 177.8 cm; Wt 84.0 kg
[2016-09-04 16:33] VITALS: BP 134/79; PULSE 81; RESP 16; TEMP 98.1; O2SAT 96
== END 2016-09-04 18:30 | disposition left against medical advice (07) ==
LOC: NED 16:32
DX: S90.929A Unspecified superficial injury of unspecified foot, initial encounter (principal); X58.XXXA Exposure to other specified factors, initial encounter; Z53.21 Procedure and treatment not carried out due to patient leaving prior to being seen by health care provider
CPT/HCPCS: 99281

== ENCOUNTER 2016-09-06 21:14 | Emergency (ER) | payer OTHER ==
[~2016-09-06] VITALS: Ht 177.8 cm; Wt 84.0 kg
[2016-09-06 21:56] VITALS: BP 130/70; PULSE 80; RESP 20; TEMP 98.2; O2SAT 98
[2016-09-06 22:18] VITALS: BP 140/100; PULSE 88; RESP 16; TEMP 98.2; O2SAT 98
--- NOTE | 2016-09-06 22:30 | PD ---
Physical Exam Time Seen by Provider: 22:29 Narrative 51 y/o female here with L foot pain. She stepped on an oyster bed 4 days ago. Vital signs reviewed. Seen at triage desk. Awaiting bed placement. Data Data Last Documented VS Vital Signs Date Time Temp Pulse Resp B/P Pulse Ox O2 Delivery O2 Flow Rate FiO2 09/06/16 22:18 98.2 88 16 140/100 98 Room Air MDM Medical Record Reviewed: Yes Supervised Visit with BARRY: No Scripts No Active Prescriptions or Reported Meds Phi Ridley Sep 06, 2016 22:30
--- NOTE | 2016-09-06 22:56 | PD ---
HPI Chief Complaint: Laceration/Skin Injury Time Seen by Provider: 22:54 Travel History International Travel<30 days: No Contact w/Intl Traveler<30days: No Traveled to known affect area: No History of Present Illness HPI Patient comes in complaining of possible foreign body in the plantar aspect of her left foot that occurred 4 days ago. Patient states she was playing in the river with her friend when she stepped on something causing a small puncture wound to the plantar surface of her left foot. Patient states she's been using abof-olm-[id number] antibiotic ointment however continues to have pain. Patient states she got out of foreign body with a knife. Pain is soreness on the plantar aspect of left foot without radiation. Pain is worse with putting pressure on it. Patient states she bought sandals to help get around and seems to have helped. Patient reports her tetanus shot is not up-to-date. Patient denies any fevers, nausea, vomiting, chest pain, shortness of breath, headaches , abdominal pain, or other injuries. PFSH Past Medical History Hx Anticoagulant Therapy: No Blood Disorders: No Bipolar Disorder: Yes Anxiety: Yes Cancer: No Cardiovascular Problems: Yes Chemotherapy: No Chest Pain: Yes Cerebrovascular Accident: No Diabetes: No Diminished Hearing: Yes ([facility] RIGHT EAR) Gastrointestinal Disorders: No Genitourinary: Yes Headaches: Yes Hypertension: Yes Implanted Vascular Access Dvce: No Musculoskeletal: Yes Neurologic: Yes Psychiatric: Yes Reproductive: No Respiratory: No Immunizations Current: Yes Migraines: Yes Radiation Therapy: No Seizures: Yes PNEUMOCCOCAL Vaccine (Year): 3 Menopausal: Yes : 3 Para: 0 Miscarriage: 0 : 3 Past Surgical History Abdominal Surgery: Yes (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 ) AICD: No Arteriovenous Shunt: No Cholecystectomy: Yes Hysterectomy: Yes (PARTIAL) Insulin Pump: No Joint Replacement: No Pacemaker: No Other Surgery: Yes Social History Alcohol Use: Yes (a 6 pack daily.) Tobacco Use: Yes (1.5 PPD) Substance Use: No Allergies-Medications (Allergen,Severity, Reaction): Coded Allergies: Codeine (Verified Allergy, Severe, Nausea/Vomiting, 09/06/16) Reported Meds & Prescriptions Reported Meds & Active Scripts Active Doxycycline Hyclate 100 Mg Cap 100 Mg PO BID Cipro (Ciprofloxacin HCl) 500 Mg Tab 500 Mg PO BID 5 Days Review of Systems Except as stated in HPI: all other systems reviewed are Neg Physical Exam Narrative GENERAL: Well-developed, overly nourished, in no acute distress, and non-ill appearing. Unkempt. SKIN: Small superficial puncture wound on the plantar aspect of left foot. Is mildly tender. There is no obvious foreign body. It is afebrile, nonfluctuant , and without crepitus. HEAD: Atraumatic. Normocephalic. EYES: Pupils equal and round. EOMI. No scleral icterus. No injection or drainage. ENT: No nasal bleeding or discharge. Mucous membranes pink and moist. NECK: Trachea midline. Supple. No nuclear rigidity. RESPIRATORY: No accessory muscle use. No respiratory distress. MUSCULOSKELETAL: No obvious deformities. No clubbing. No cyanosis. No edema. Full range of motion. NEUROLOGICAL: Awake and alert. No obvious cranial nerve deficits. Motor grossly within normal limits. Normal speech. PSYCHIATRIC: Appropriate mood and affect; insight and judgment normal. Data Data Last Documented VS Vital Signs Date Time Temp Pulse Resp B/P Pulse Ox O2 Delivery O2 Flow Rate FiO2 09/06/16 22:18 98.2 88 16 140/100 98 Room Air Orders Wound Care (09/06/16 22:52) Tetanus/Diphtheria Tox Adult (Tetanus/Di (09/06/16 23:00) Foot, Complete ([id number]) (09/06/16 ) Doxycycline (Vibramycin) (09/06/16 23:00) Ciprofloxacin (Cipro) (09/06/16 23:00) MDM Medical Decision Making Medical Screen Exam Complete: Yes Emergency Medical Condition: Yes Interpretation(s) X-ray of the left foot read by the radiologist shows: No foreign body is identified. Diffuse soft tissue swelling is present Differential Diagnosis Retained foreign body, puncture wound, laceration, other Narrative Course The patient suffered a puncture wound to the foot. There was no evidence to suggest foreign bodies. Visual, tactile and radiographic exams were unremarkable without evidence of foreign body at this time. There was no evidence of neurovascular injury. The patient had a normal distal vascular exam , and had full normal motor and sensory exams. There was also no evidence or tendon injury, with normal distal full range of motions, flexion, extension, abduction, adduction and opponens. There was no evidence of local joint space involvement at this time. The patient was irrigated with copious sterile normal saline and sterile dressing was placed. The patient was given signs and symptom warnings for infection, such as increasing pain, redness, swelling, associated heat, pus or fever. The patient was warned of possible unseen foreign body and instructed to return immediately if signs or symptoms develop. The patient was given instructions for timely follow up. The patient agreed with plan of care. Patient in no obvious distress upon re-evaluation. All pertinent Radiology result(s) discussed with patient. Patient was asked if they wanted to speak to my attending, which the patient did not wish to do at this time. Any questions/ concerns in reference to patient diagnosis/condition discussed and clarified prior to patient's discharge. Reinforced sheer importance of close follow up with patient's primary physician or primary care clinic. Instructed patient to return to ED immediately, if symptoms return/worsen. Pt showed understanding of above instructions. Further instructions and recommendations were detailed in discharge paperwork. Pt left without difficulty out of ED at discharge. Diagnosis Primary Impression: Puncture wound Patient Instructions: General Instructions, Puncture Wound (ED) Additional Instructions: Follow-up with your primary care physician and/or slat twister in 3-4 days for reevaluation. Take all medication as prescribed. Keep wound dry and clean as possible using soap and water. Do not soak or submerge wound. Return to the emergency department if symptoms get worse. Med/Other Pt SpecificInfo: Prescription(s) given Scripts Doxycycline Hyclate 100 Mg [id number] Mg PO BID #20 CAP Ref 0 Prov:Lianne Avila DO 09/06/16 Ciprofloxacin (Cipro)500 Mg [id number] Mg PO BID 5 Days Ref 0 Prov:Lianne Avila DO 09/06/16 Disposition: 01 DISCHARGE HOME Condition: Stable Sal Mckee Sep 06, 2016 22:56
[2016-09-06] MEDS ORDERED: CIPROFLOXACIN 500 MG TAB PO ONE (23:00)
[2016-09-06] MEDS ORDERED: TETANUS/DIPHTHERIA TOXOID ADULT 0.5 ML VIAL IM ONE (23:00)
[2016-09-06] MEDS ORDERED: DOXYCYCLINE HYCLATE 100 MG CAP PO ONE (23:00)
--- NOTE | 2016-09-06 23:42 | RADRPT ---
EXAM DATE/TIME: 09/06/2016 23:08 [facility] COMPARISON: No previous studies available for comparison. INDICATIONS : Pt stepped on oyster bed 4 days ago- redness and swelling to left foot. MEDICAL HISTORY : Hypertension. Seizures SURGICAL HISTORY : Cholecystectomy. Hysterectomy. ENCOUNTER: Initial ACUITY: 4 - 6 days PAIN SCORE: 8/10 LOCATION: Left Foot FINDINGS: Three view examination of the left foot demonstrates no soft tissue swelling, dislocation, or fractur e. The tarsal bones appear intact. The interphalangeal and metatarsophalangeal joints are intact. The calcaneus is intact. Bony mineralization is normal. No foreign body is identified. There is francisco ign-appearing cyst in the cuboid CONCLUSION: 1. No foreign body is identified. Diffuse soft tissue swelling is present Zia Cadena MD on September 06, 2016 at 23:40 Board Certified Radiologist. This report was verified electronically.
[2016-09-06] MEDS ORDERED: CIPR-9 PO (23:50)
[2016-09-06] MEDS ORDERED: DOXY100C PO (23:50)
== END 2016-09-07 00:29 | disposition home or self-care (01) ==
LOC: NEPK 21:14
DX: S91.332A Puncture wound without foreign body, left foot, initial encounter (principal); W26.9XXA Contact with unspecified sharp object(s), initial encounter; Y92.828 Other wilderness area as the place of occurrence of the external cause; Z23 Encounter for immunization
CPT/HCPCS: 73630; 90471; 90714

== ENCOUNTER 2016-09-26 20:16 | Emergency (ER) | payer OTHER ==
[~2016-09-26] VITALS: Ht 177.8 cm; Wt 90.0 kg
[~2016-09-26 20:16] MED LIST changes: +CIPR-9 PO; -DILA100C PO; +DOXY100C PO
[2016-09-26] MEDS ORDERED: DILA30CA PO (20:30)
--- NOTE | 2016-09-26 20:39 | PD ---
HPI Chief Complaint: Alcohol/Drug Intoxication Time Seen by Provider: 20:33 Travel History International Travel<30 days: No Contact w/Intl Traveler<30days: No Traveled to known affect area: No History of Present Illness HPI 51-year-old female brought in under [facility] after being found intoxicated in public, agitated, and refusing to leave. Patient admits to drinking alcohol throughout the day today. She denies illicit drugs. No physical complaints. PFSH Past Medical History Hx Anticoagulant Therapy: No Blood Disorders: No Bipolar Disorder: Yes Anxiety: Yes Cancer: No Cardiovascular Problems: Yes Chemotherapy: No Chest Pain: Yes Cerebrovascular Accident: No Diabetes: No Diminished Hearing: Yes ([facility] RIGHT EAR) Gastrointestinal Disorders: No Genitourinary: Yes Headaches: Yes Hypertension: Yes Implanted Vascular Access Dvce: No Musculoskeletal: Yes Neurologic: Yes Psychiatric: Yes Reproductive: No Respiratory: No Immunizations Current: Yes Migraines: Yes Radiation Therapy: No Seizures: Yes PNEUMOCCOCAL Vaccine (Year): 3 ?: Not Menopausal: Yes : 3 Para: 0 Miscarriage: 0 : 3 Past Surgical History Abdominal Surgery: Yes (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 INFANT) AICD: No Arteriovenous Shunt: No Cholecystectomy: Yes Hysterectomy: Yes (PARTIAL) Insulin Pump: No Joint Replacement: No Pacemaker: No Other Surgery: Yes Social History Alcohol Use: Yes (a 6 pack daily.) Tobacco Use: Yes (1.5 PPD) Substance Use: No Allergies-Medications (Allergen,Severity, Reaction): Coded Allergies: Codeine (Verified Allergy, Severe, Nausea/Vomiting, 09/26/16) Reported Meds & Prescriptions Reported Meds & Active Scripts Active Reported Dilantin (Phenytoin Extended) Unknown Strength Cap Unknown Dose PO TID Review of Systems Except as stated in HPI: all other systems reviewed are Neg Physical Exam Narrative GENERAL: Well-developed, well-nourished, awake, alert, disheveled, sitting comfortably on stretcher, appears intoxicated, no apparent distress. SKIN: Focused skin assessment warm/dry. HEAD: Atraumatic. Normocephalic. EYES: Pupils equal and round. No scleral icterus. No injection or drainage. ENT: No nasal bleeding or discharge. Mucous membranes pink and moist. NECK: Trachea midline. No JVD. CARDIOVASCULAR: Regular rate and rhythm. No murmur appreciated. RESPIRATORY: No accessory muscle use. Clear to auscultation. Breath sounds equal bilaterally. GASTROINTESTINAL: Abdomen soft, non-tender, nondistended. Hepatic and splenic margins not palpable. MUSCULOSKELETAL: No obvious deformities. No clubbing. No cyanosis. No edema. NEUROLOGICAL: Awake and alert. No obvious cranial nerve deficits. Motor grossly within normal limits. Normal speech. PSYCHIATRIC: Appears intoxicated. MDM Medical Decision Making Medical Screen Exam Complete: Yes Emergency Medical Condition: Yes Medical Record Reviewed: Yes Differential Diagnosis Alcohol intoxication Narrative Course The patient be allowed to sleep off her intoxication in the emergency department. Diagnosis Primary Impression: Alcohol intoxication Qualified Code: F10.920 - Alcoholic intoxication without complication Referrals: [facility] day Disposition: 01 DISCHARGE HOME Condition: Stable Yannick Portillo MD Sep 26, 2016 20:38
[2016-09-26 21:35] VITALS: BP 123/71; PULSE 81; RESP 16; O2SAT 96
== END 2016-09-27 05:44 | disposition home or self-care (01) ==
LOC: NEPE 20:16 → NEPD 09-27 05:44
DX: F10.120 Alcohol abuse with intoxication, uncomplicated (principal); F17.210 Nicotine dependence, cigarettes, uncomplicated; I10 Essential (primary) hypertension
CPT/HCPCS: 99283

== ENCOUNTER 2016-10-06 18:44 | Emergency (ER) | payer OTHER ==
[~2016-10-06 18:44] MED LIST changes: -CIPR-9 PO; +DILA30CA PO; -DOXY100C PO
[2016-10-06 19:13] VITALS: BP 119/61; PULSE 91; RESP 16; TEMP 98.6; O2SAT 97
[2016-10-06] MEDS ORDERED: SODIUM CHLOR 0.9% 1000 ML INJ 1,000 ML IV ONE (19:15)
[2016-10-06] MEDS ORDERED: THIAMINE INJ 100 MG in SODIUM CHLORIDE 0.9% INJ 100 ML IV ONE (19:15)
--- NOTE | 2016-10-06 19:20 | PD ---
HPI Chief Complaint: Alcohol/Drug Intoxication Time Seen by Provider: 19:10 Travel History International Travel<30 days: No Contact w/Intl Traveler<30days: No Traveled to known affect area: No History of Present Illness HPI This is a 51-year-old female alcoholic, frequent visitor to this emergency department, who presents for evaluation of intoxication. She reports that she went to a place called the [employer] and drank some alcohol outside of the store. The police chief deputy drinking alcohol and brought her here. She is complaining of left ankle and left knee pain from a recent fall. She reports that she falls frequently because of balance issues. She's been having issues with her balance for almost 30 years. She reports that it started after a closed head injury in the early s. She does not remember when her last fall was. History is limited secondary to patient agitation and intoxication. She denies any other pain and she has no other complaints. PFSH Past Medical History Hx Anticoagulant Therapy: No Blood Disorders: No Bipolar Disorder: Yes Anxiety: Yes Cancer: No Cardiovascular Problems: Yes Chemotherapy: No Chest Pain: Yes Cerebrovascular Accident: No Diabetes: No Diminished Hearing: Yes ([place] RIGHT EAR) Gastrointestinal Disorders: No Genitourinary: Yes Headaches: Yes Hypertension: Yes Implanted Vascular Access Dvce: No Musculoskeletal: Yes Neurologic: Yes Psychiatric: Yes Reproductive: No Respiratory: No Immunizations Current: Yes Migraines: Yes Radiation Therapy: No Seizures: Yes PNEUMOCCOCAL Vaccine (Year): 3 Menopausal: Yes : 3 Para: 0 Miscarriage: 0 : 3 Past Surgical History Abdominal Surgery: Yes (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 ) AICD: No Arteriovenous Shunt: No Cholecystectomy: Yes Hysterectomy: Yes (PARTIAL) Insulin Pump: No Joint Replacement: No Pacemaker: No Other Surgery: Yes Social History Alcohol Use: Yes (a 6 pack daily.) Tobacco Use: Yes (1.5 PPD) Substance Use: No Allergies-Medications (Allergen,Severity, Reaction): Coded Allergies: codeine (Unverified Allergy, Severe, Nausea/Vomiting, 10/06/16) Reported Meds & Prescriptions Reported Meds & Active Scripts Active Reported Dilantin (Phenytoin Extended) Unknown Strength Cap Unknown Dose PO TID Review of Systems ROS Limitations: Intoxication, Combative Except as stated in HPI: all other systems reviewed are Neg Physical Exam Exam Limitations: Intoxication, Combative Narrative GENERAL: This is a disheveled appearing female who is intoxicated and verbally combative. SKIN: Warm and dry. There is an abrasion to the anterior left knee. HEAD: Atraumatic. Normocephalic. EYES: Pupils unequal, round, reactive to light, extraocular muscles are intact. No scleral icterus. No injection or drainage. ENT: No nasal bleeding or discharge. Mucous membranes pink and moist. NECK: Trachea midline. No JVD. CARDIOVASCULAR: Regular rate and rhythm. No murmur appreciated. RESPIRATORY: No accessory muscle use. Clear to auscultation. Breath sounds equal bilaterally. GASTROINTESTINAL: Abdomen soft, non-tender, nondistended. Hepatic and splenic margins not palpable. MUSCULOSKELETAL: There is an abrasion to left knee. There is some soft tissue swelling to lateral left ankle. There is some tenderness to palpation of the left ankle and knee. The patient climbed out of bed and was able to ambulate to the bathroom with minimal assistance and some limp secondary to the left ankle pain. NEUROLOGICAL: Awake and alert. No obvious cranial nerve deficits. Motor grossly within normal limits. Slurred speech. Data Data Last Documented VS Vital Signs Date Time Temp Pulse Resp B/P Pulse Ox O2 Delivery O2 Flow Rate FiO2 10/06/16 19:13 98.6 91 16 119/61 97 Orders Basic Metabolic Panel (Bmp) (10/06/16 19:15) Magnesium (Mg) (10/06/16 19:15) Ct Brain W/O Iv Contrast(Rout) (10/06/16 19:15) Sodium Chlor 0.9% 1000 Ml Inj (Ns 1000 M (10/06/16 19:15) Ankle, Complete ([id number]) (10/06/16 ) Knee, Complete (4vws) (10/06/16 ) Thiamine Inj (Thiamine Inj) (10/06/16 19:15) Labs Laboratory Tests Test 10/06/16 20:15 Sodium Level 143 MEQ/L Potassium Level 3.7 MEQ/L Chloride Level 111 MEQ/L Carbon Dioxide Level 25.4 MEQ/L Anion Gap 7 MEQ/L Blood Urea Nitrogen 11 MG/DL Creatinine 0.76 MG/DL Estimat Glomerular Filtration 80 ML/MIN Rate Random Glucose 96 MG/DL Calcium Level 7.9 MG/DL Magnesium Level 2.4 MG/DL MDM Medical Decision Making Medical Screen Exam Complete: Yes Emergency Medical Condition: Yes Medical Record Reviewed: Yes Differential Diagnosis Alcoholism, hyponatremia, dehydration, vertigo, chronic subdural hematoma Narrative Course 51-year-old female presents for evaluation of alcohol intoxication. She reports issues with her balance for almost 30 years resulting in frequent falls. She is complaining of left ankle and knee pain from a recent fall. Plan is to check her electrolytes, CT of the brain, x-ray of the left knee and ankle. She will be given IV fluids and thiamine. The patient's laboratory imaging studies have been reviewed. Ankle x-ray reveals some soft tissue swelling with no fracture. CT of the brain is normal. The x-rays over. Calcium is slightly low. At this point in time the patient is medically cleared, she will remain here until she is clinically sober. Diagnosis Primary Impression: Acute alcohol intoxication Qualified Code: F10.929 - Acute alcoholic intoxication without complication Additional Impression: SPRAIN OF OTHER LIGAMENT OF LEFT ANKLE, INITIAL ENCOUNTER Med/Other Pt SpecificInfo: No Change to Meds Disposition: 01 DISCHARGE HOME Condition: Stable Phi Ridley Oct 06, 2016 19:20
--- NOTE | 2016-10-06 20:06 | RADRPT ---
EXAM DATE/TIME: 10/06/2016 19:55 [facility] COMPARISON: CT BRAIN W/O CONTRAST, June 20, 2016, 21:44. INDICATIONS : Altered mental status. RADIATION DOSE: 31.90 CTDIvol (mGy) MEDICAL HISTORY : Cardiovascular disease. Hypertension. Seizures. SURGICAL HISTORY : Cholecystectomy. Hysterectomy. ENCOUNTER: Initial ACUITY: 1 day PAIN SCALE: 0/10 LOCATION: cranial TECHNIQUE: Multiple contiguous axial images were obtained of the head. Using automated exposure control and adj ustment of the mA and/or kV according to patient size, radiation dose was kept as low as reasonably a chievable to obtain optimal diagnostic quality images. DICOM format image data is available electro nically for review and comparison. FINDINGS: There is no evidence for intracranial hemorrhage, mass effect, mass lesions, edema, or extra-axial fl uid collections. The visualized bony structures appear intact. The ventricles are normal size for t he patient's age. There are no signs of acute infarction for technique. There may be old fractures o f zygomatic arches bilaterally. CONCLUSION: Unremarkable study. David David MD on October 06, 2016 at 20:04 Board Certified Radiologist. This report was verified electronically.
--- NOTE | 2016-10-06 20:08 | RADRPT ---
EXAM DATE/TIME: 10/06/2016 19:29 [facility] COMPARISON: No previous studies available for comparison. INDICATIONS : Patient complains of left ankle pain and swelling. No known injury. MEDICAL HISTORY : Unobtainable SURGICAL HISTORY : Unobtainable ENCOUNTER: Initial ACUITY: 1 day PAIN SCORE: 7/10 LOCATION: Left Ankle FINDINGS: No definite fractures, or dislocations are identified. No definite lytic or sclerotic lesion is seen . Soft tissue swelling is identified. CONCLUSION: Soft tissue swelling and no definite fracture for lobo. David David MD on October 06, 2016 at 20:07 Board Certified Radiologist. This report was verified electronically.
--- NOTE | 2016-10-06 20:08 | RADRPT ---
EXAM DATE/TIME: 10/06/2016 19:27 [facility] COMPARISON: No previous studies available for comparison. INDICATIONS : Patient complains of left knee pain. No known injury. Open sore near patella. MEDICAL HISTORY : Unobtainable SURGICAL HISTORY : Unobtainable ENCOUNTER: Initial ACUITY: 1 day PAIN SCORE: 7/10 LOCATION: Left Knee FINDINGS: No definite fractures, or dislocations are identified. No definite lytic or sclerotic lesion is seen . The joint spaces are well maintained. CONCLUSION: Unremarkable study. David David MD on October 06, 2016 at 20:06 Board Certified Radiologist. This report was verified electronically.
[2016-10-06 20:51] LABS: BICARBONATE 25.4 MEQ/L (21.0-32.0); MAGNESIUM 2.4 MG/DL (1.5-2.5)
[2016-10-06 20:54] LABS: POTASSIUM 3.7 MEQ/L (3.5-5.1)
[2016-10-07 05:18] VITALS: BP 119/65; PULSE 79; RESP 16; O2SAT 97
== END 2016-10-07 05:49 | disposition home or self-care (01) ==
LOC: NEPD 18:44
DX: F10.929 Alcohol use, unspecified with intoxication, unspecified (principal); S93.492A Sprain of other ligament of left ankle, initial encounter; M25.562 Pain in left knee; I10 Essential (primary) hypertension; H91.91 Unspecified hearing loss, right ear; F17.200 Nicotine dependence, unspecified, uncomplicated; W18.39XA Other fall on same level, initial encounter; Z91.81 History of falling; Z79.899 Other long term (current) drug therapy; Z86.59 Personal history of other mental and behavioral disorders; Z86.79 Personal history of other diseases of the circulatory system; Z87.448 Personal history of other diseases of urinary system; Z87.39 Personal history of other diseases of the musculoskeletal system and connective tissue; Z86.69 Personal history of other diseases of the nervous system and sense organs
CPT/HCPCS: 70450; 73564; 73610; 80048; 83735; 96365; 99285; J3411; J7030

== ENCOUNTER 2016-11-19 15:05 | Emergency (ER) | payer OTHER | END 2016-11-19 19:18 | disposition left against medical advice (07) | LOC: NED 15:05 | DX: M79.606 Pain in leg, unspecified (principal); Z53.21 Procedure and treatment not carried out due to patient leaving prior to being seen by health care provider | CPT/HCPCS: 99281 ==

== ENCOUNTER 2016-12-24 16:22 | Emergency (ER) | payer OTHER ==
[2016-12-24] MEDS ORDERED: BACT800T5 PO (17:38)
[2016-12-24] MEDS ORDERED: CEPH-460 PO (17:38)
[2016-12-24] MEDS ORDERED: PERM1KIT TOPICAL (17:38)
--- NOTE | 2016-12-24 17:41 | PD ---
HPI Chief Complaint: Skin Problem Time Seen by Provider: 17:35 Travel History International Travel<30 days: No Contact w/Intl Traveler<30days: No Traveled to known affect area: No History of Present Illness HPI This is a 51-year-old female who presents with multiple complaints. She is complaining of head lice which is pruritic. This is been ongoing for "a while. " She is also complaining of left thumb injury which was sustained in December 18. She does not recall how she injured it but it is painful, throbbing, worse with palpation. She is also complaining of a puncture wound to the plantar aspect of the right foot for an unknown duration of time, worse when walking. She is also complaining of an area of skin redness to the medial left ankle which started yesterday. She believes that she was bitten by a bug. She has no other complaints at this time. PFSH Past Medical History Hx Anticoagulant Therapy: No Blood Disorders: No Bipolar Disorder: Yes Anxiety: Yes Cancer: No Cardiovascular Problems: Yes Chemotherapy: No Chest Pain: Yes Cerebrovascular Accident: No Diabetes: No Diminished Hearing: Yes ([place] RIGHT EAR) Gastrointestinal Disorders: No Genitourinary: Yes Headaches: Yes Hypertension: Yes Implanted Vascular Access Dvce: No Musculoskeletal: Yes Neurologic: Yes Psychiatric: Yes Reproductive: No Respiratory: No Immunizations Current: Yes Migraines: Yes Radiation Therapy: No Seizures: Yes PNEUMOCCOCAL Vaccine (Year): 3 ?: Not Menopausal: Yes : 3 Para: 0 Miscarriage: 0 : 3 Past Surgical History Abdominal Surgery: Yes (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 INFANT) AICD: No Arteriovenous Shunt: No Cholecystectomy: Yes Hysterectomy: Yes (PARTIAL) Insulin Pump: No Joint Replacement: No Pacemaker: No Other Surgery: Yes Social History Alcohol Use: Yes (a 6 pack daily.) Tobacco Use: Yes (1.5 PPD) Substance Use: No Allergies-Medications (Allergen,Severity, Reaction): Coded Allergies: codeine (Unverified Allergy, Severe, Nausea/Vomiting, 10/06/16) Reported Meds & Prescriptions Reported Meds & Active Scripts Active Keflex (Cephalexin) 500 Mg Cap 500 Mg PO Q8H Bactrim DS (Sulfamethoxazole-Trimethoprim) 800-160 Mg Tab 1 Tab PO BID Nix Complete Lice Treatme 1 & 0.25 % (Permethrin & Nit Remover) 1 %-0.25 % Kit 1 Unit TOPICAL ONCE 1 Days Reported Dilantin (Phenytoin Extended) Unknown Strength Cap Unknown Dose PO TID Review of Systems Except as stated in HPI: all other systems reviewed are Neg Physical Exam Narrative GENERAL: Disheveled appearing female who is in no acute distress SKIN: Warm and dry. 1 cm area of erythema to the medial left ankle. There is a blister which is open on the left thumb with little bit of erythema, no purulent drainage. Old-appearing puncture wound to the plantar aspect of the right foot. HEAD: Atraumatic. Normocephalic. Head lice is visible. EYES: Pupils equal and round. No scleral icterus. No injection or drainage. ENT: No nasal bleeding or discharge. Mucous membranes pink and moist. NECK: Trachea midline. No JVD. CARDIOVASCULAR: Regular rate and rhythm. No murmur appreciated. RESPIRATORY: No accessory muscle use. Clear to auscultation. Breath sounds equal bilaterally. GASTROINTESTINAL: Abdomen soft, non-tender, nondistended. Hepatic and splenic margins not palpable. MUSCULOSKELETAL: No obvious deformities. Tender to palpation plantar right foot , left thumb. NEUROLOGICAL: Awake and alert. No obvious cranial nerve deficits. Motor grossly within normal limits. Data Data Last Documented VS Vital Signs Date Time Temp Pulse Resp B/P (MAP) Pulse Ox O2 Delivery O2 Flow Rate FiO2 12/24/16 18:38 98.9 101 20 163/101 (121) 100 Orders Orders Finger ([id number]) (12/24/16 ) Foot, Complete ([id number]) (12/24/16 ) Tetanus/Diphtheria Tox Adult (Tetanus/Di (12/24/16 17:45) Ed Discharge Order (12/24/16 18:26) [facility] Medical Decision Making Medical Screen Exam Complete: Yes Emergency Medical Condition: Yes Medical Record Reviewed: Yes Differential Diagnosis Cellulitis, burn, abscess, pediculosis capitis, puncture wound Narrative Course Tetanus status updated. X-ray imaging of the left thumb and right foot were obtained. X-ray imaging of the left thumb concerning for possible foreign body, no foreign body clinically. The patient is being discharged with Bactrim, Keflex, permethrin. Diagnosis Primary Impression: Blister of left thumb Qualified Codes: S60.322A - Blister (nonthermal) of left thumb, initial encounter Additional Impressions: Puncture wound of right foot Qualified Codes: S91.331A - Puncture wound without foreign body, right foot, initial encounter Cellulitis of left ankle Pediculosis capitis Additional Instructions: Medication as prescribed. Follow-up with primary care. Keep the wounds clean. Return for any emergent medical conditions. Med/Other Pt SpecificInfo: Prescription(s) given Scripts Cephalexin (Keflex) 500 Mg Cap 500 MG PO Q8H for Infection, #30 CAP 0 Refills Prov: Ye French MD 12/24/16 Sulfamethoxazole-Trimethoprim (Bactrim DS) 800-160 Mg Tab 1 TAB PO BID for Infection, #20 TAB 0 Refills Prov: Ye French MD 12/24/16 Permethrin & Nit Remover (Nix Complete Lice Treatme 1 & 0.25 %) 1 %-0.25 % Kit 1 UNIT TOPICAL ONCE for 1 Day, 1 Refill Prov: Ye French MD 12/24/16 Disposition: 01 DISCHARGE HOME Condition: Stable Phi Ridley Dec 24, 2016 17:41
[2016-12-24] MEDS: TETANUS/DIPHTHERIA TOXOID ADULT 0.5 ML VIAL IM ONE ×2 (17:42→17:45)
--- NOTE | 2016-12-24 17:58 | RADRPT ---
EXAM DATE/TIME: 12/24/2016 17:43 [facility] COMPARISON: No previous studies available for comparison. INDICATIONS : Left hand, 1st digit swelling and pain after sticking finger with pen. MEDICAL HISTORY : None. SURGICAL HISTORY : None. ENCOUNTER: Initial ACUITY: 4 - 6 days PAIN SCORE: 10/10 LOCATION: Left distal hand, 1st digit. FINDINGS: Minimal radiopacity is seen on the palmar aspect of the thumb and site of entry wound. Fractures are appreciated. CONCLUSION: Possible foreign body. Fracture not appreciated.. Kali Segura MD FACR on December 24, 2016 at 17:55 Board Certified Radiologist. This report was verified electronically.
--- NOTE | 2016-12-24 17:59 | RADRPT ---
EXAM DATE/TIME: 12/24/2016 17:48 [facility] COMPARISON: No previous studies available for comparison. INDICATIONS : Right foot, plantar surface wounds and pain with no injury. MEDICAL HISTORY : None. SURGICAL HISTORY : None. ENCOUNTER: Initial ACUITY: 1 week PAIN SCORE: 10/10 LOCATION: Right foot, plantar surface. FINDINGS: Three view examination of the right foot demonstrates no soft tissue swelling, dislocation, or fractu re. The tarsal bones appear intact. The interphalangeal and metatarsophalangeal joints are intact. The calcaneus is intact. Bony mineralization is normal. CONCLUSION: Negative for fracture or radiopaque foreign body. Kali Segura MD FACR on December 24, 2016 at 17:55 Board Certified Radiologist. This report was verified electronically.
[2016-12-24 18:38] VITALS: BP 163/101; PULSE 101; RESP 20; TEMP 98.9; O2SAT 100
== END 2016-12-24 18:54 | disposition home or self-care (01) ==
LOC: NEPK 16:22
DX: S60.322A Blister (nonthermal) of left thumb, initial encounter (principal); S91.331A Puncture wound without foreign body, right foot, initial encounter; L03.116 Cellulitis of left lower limb; B85.0 Pediculosis due to Pediculus humanus capitis; X58.XXXA Exposure to other specified factors, initial encounter
CPT/HCPCS: 73140; 73630; 90714; 99284

== ENCOUNTER 2017-01-09 23:48 | Emergency (ER) | payer OTHER ==
[~2017-01-09 23:48] MED LIST changes: +BACT800T5 PO; +CEPH-460 PO; +PERM1KIT TOPICAL
== END 2017-01-10 00:05 | disposition left against medical advice (07) ==
LOC: NEPE 23:48
DX: R07.9 Chest pain, unspecified (principal)

== ENCOUNTER 2017-01-29 23:17 | Emergency (ER) | payer OTHER ==
[2017-01-30] MEDS ORDERED: DILA100C PO (04:54)
== END 2017-01-29 23:40 | disposition left against medical advice (07) ==
LOC: NEDAMB 23:17
DX: M25.559 Pain in unspecified hip (principal); Z53.21 Procedure and treatment not carried out due to patient leaving prior to being seen by health care provider
CPT/HCPCS: 99281

== ENCOUNTER 2017-01-30 03:00 | Emergency (ER) | payer OTHER ==
[~2017-01-30] VITALS: Ht 162.6 cm; Wt 70.0 kg
[2017-01-30 03:24] VITALS: BP 125/72; PULSE 80; RESP 22; TEMP 97.9; O2SAT 92
[2017-01-30] MEDS ORDERED: RESP: ALBUTEROL 2.5 MG/IPRATROPIUM 0.5 MG NEB (SCH) NEB ONE (03:45)
[2017-01-30 03:52] LABS: AUTOMATED NEUTROPHIL # 2.3 TH/MM3 (1.8-7.7); BASOPHIL # 0.1 TH/MM3 (0-0.2); BASOPHIL % 1.2 % (0.0-2.0); EOSINOPHIL # 0.1 TH/MM3 (0-0.4); EOSINOPHIL % 3.2 % (0.0-4.0); HEMATOCRIT 41.5 % (35.0-46.0); HEMO FLAGS DIFF FINAL; LYMPH % 39.9 % (9.0-44.0); LYMPHOCYTE # 1.9 TH/MM3 (1.0-4.8); MEAN CORPUSCULAR HEMOGLOBIN 34.2 PG (27.0-34.0); MEAN CORPUSCULAR HGB CONC 34.5 % (32.0-36.0); MONO % 6.5 % (0.0-8.0); NEUT % 49.2 % (16.0-70.0); PLATELET COUNT 155 TH/MM3 (150-450); RED CELL DISTRIBUTION WIDTH 13.8 % (11.6-17.2); WHITE BLOOD COUNT 4.7 TH/MM3 (4.0-11.0)
--- NOTE | 2017-01-30 04:01 | RADRPT ---
EXAM DATE/TIME: 01/30/2017 03:53 [facility] COMPARISON: CHEST SINGLE AP, August 07, 2015, 4:14. INDICATIONS : Cough. MEDICAL HISTORY : Cardiovascular disease. Hypertension. Seizures SURGICAL HISTORY : Cholecystectomy. Hysterectomy. ORIF right humerus ENCOUNTER: Initial ACUITY: 1 day PAIN SCORE: 0/10 LOCATION: Bilateral chest FINDINGS: A single view of the chest demonstrates the lungs to be symmetrically aerated without evidence of mas s, infiltrate or effusion. The cardiomediastinal contours are unremarkable. Surgical hardware proxi mal right humerus.. CONCLUSION: The lungs are clear. Yeyo Cadena MD on January 30, 2017 at 3:59 Board Certified Radiologist. This report was verified electronically.
[2017-01-30 04:23] LABS: ALKALINE PHOSPHATASE 97 U/L (45-117); TOTAL BILIRUBIN ADULT 0.3 MG/DL (0.2-1.0)
[2017-01-30 04:31] LABS: ALT (GPT) 82 U/L (10-53); ANION GAP 9 MEQ/L (5-15); AST (GOT) 82 U/L (15-37); BICARBONATE 23.7 MEQ/L (21.0-32.0); BLOOD UREA NITROGEN 14 MG/DL (7-18); CHLORIDE 106 MEQ/L (98-107); GLOMERULAR FILTRATION RATE 75 ML/MIN (>89); POTASSIUM 4.9 MEQ/L (3.5-5.1); SODIUM (NA) 139 MEQ/L (136-145)
[2017-01-30] MEDS ORDERED: DILA100C PO (04:54)
[2017-01-30] MEDS ORDERED: PHENYTOIN SODIUM 100 MG CAP PO ONE (05:00)
--- NOTE | 2017-01-30 05:06 | PD ---
HPI Chief Complaint: Pain: Acute or Chronic Time Seen by Provider: 03:04 Travel History International Travel<30 days: No Contact w/Intl Traveler<30days: No Traveled to known affect area: No History of Present Illness HPI The patient is a 51 year old female who presents to the [facility] emergency department with a history of reportedly having 2 generalized clonic tonic seizures earlier today. She reports that she has a known history of seizure disorder. She reports that she is supposed to be on Dilantin, however she does not take it as she is homeless and cannot afford it. In spite of this , the patient does report that she smokes a pack of cigarettes per day. She also reports that she drinks alcohol on a daily basis usually approximately 4 beers daily. The patient additionally reports having wheezing, chest congestion. She also reports having chronic right shoulder and right hip pain. Otherwise on review of systems, the patient denies having any known recent fevers, neck pain, chest pain, vomiting, diarrhea, urinary symptoms, or neurologic symptoms. The patient on review of systems also reports having right upper quadrant abdominal pain. She reports that this abdominal pain is also chronic. [facility] Past Medical History Narrative Medical the patient's past medical history is significant for having a traumatic brain injury in the , history of seizure disorder, alcohol abuse, tobacco abuse, history of chronic right arm pain, chronic right hip pain, arthritis Hx Anticoagulant Therapy: No Blood Disorders: No Bipolar Disorder: Yes Anxiety: Yes Cancer: No Cardiovascular Problems: Yes Chemotherapy: No Chest Pain: Yes Cerebrovascular Accident: No Diabetes: No Diminished Hearing: Yes ([place] RIGHT EAR) Gastrointestinal Disorders: No Genitourinary: Yes Headaches: Yes Hypertension: Yes Implanted Vascular Access Dvce: No Musculoskeletal: Yes Neurologic: Yes Psychiatric: Yes Reproductive: No Respiratory: No Immunizations Current: Yes Migraines: Yes Radiation Therapy: No Seizures: Yes Tetanus Vaccination: < 5 Years Influenza Vaccination: No PNEUMOCCOCAL Vaccine (Year): 3 ?: Not Menopausal: Yes : 3 Para: 0 Miscarriage: 0 : 3 Past Surgical History Narrative Surgical The patient's past surgical history is significant for right arm ORIF, hysterectomy, cholecystectomy, pyloric stenosis surgery as an . Abdominal Surgery: Yes (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 INFANT) AICD: No Arteriovenous Shunt: No Cholecystectomy: Yes Hysterectomy: Yes (PARTIAL) Insulin Pump: No Joint Replacement: No Pacemaker: No Other Surgery: Yes Social History Alcohol Use: Yes (daily.) Tobacco Use: Yes (1.5 PPD) Substance Use: No Allergies-Medications (Allergen,Severity, Reaction): Coded Allergies: codeine (Unverified Allergy, Severe, Nausea/Vomiting, 10/06/16) Reported Meds & Prescriptions Reported Meds & Active Scripts Active Dilantin (Phenytoin Extended) 100 Mg Cap 100 Mg PO TID Keflex (Cephalexin) 500 Mg Cap 500 Mg PO Q8H Bactrim DS (Sulfamethoxazole-Trimethoprim) 800-160 Mg Tab 1 Tab PO BID Nix Complete Lice Treatme 1 & 0.25 % (Permethrin & Nit Remover) 1 %-0.25 % Kit 1 Unit TOPICAL ONCE 1 Days Reported Dilantin (Phenytoin Extended) Unknown Strength Cap Unknown Dose PO TID Review of Systems General / Constitutional: No: Fever Eyes: No: Visual changes HENT: Positive: Congestion, No: Headaches Cardiovascular: Positive: Dyspnea on exertion, No: Chest Pain or Discomfort Respiratory: Positive: Cough, Shortness of Breath, Wheezing Gastrointestinal: Positive: Abdominal Pain, No: Nausea, Vomiting, Diarrhea, Changes in Bowel Habits, Loss of Appetite Genitourinary: No: Dysuria Musculoskeletal: No: Pain Skin: No Rash Neurologic: Positive: Seizures, No: Weakness, Focal Abnormalities, Change in Mentation, Slurred Speech, Sensory Disturbance Psychiatric: No: Depression Endocrine: No: Polydipsia Hematologic/Lymphatic: No: Easy Bruising Physical Exam Narrative General: The patient is a well-developed well-nourished female in no acute distress, disheveled appearing on examination. Head and Neck exam: Head is normocephalic atraumatic. Eyes: EOMI, pupils are equal round and reactive to light. Nose: Midline septum with pink mucous membranes Mouth: Dentition unremarkable. Moist mucus membranes. Posterior oropharynx is not erythematous. No tonsillar hypertrophy. Uvula midline. Airway patent. Neck: No palpable lymphadenopathy. No nuchal rigidity. No thyromegaly. Cardiovascular: Regular rate and rhythm without murmurs, gallops, or rubs. Lungs: No accessory muscle use noted. No tripoding or paroxysmal abdominal breathing, however the patient is noted to have anterior soft expiratory wheezes audible. No rhonchi or crackles. Abdomen: Soft, with reported tenderness on palpation of the right upper quadrant of the abdomen, no other tenderness on palpation of the other quadrants of the abdomen negative Sinclair's sign. No tenderness on palpation of McBurney's point. Normal bowel sounds are audible.. No guarding, rebound, or rigidity. Extremities: No clubbing, cyanosis, or edema. 2+ pulses in all 4 extremities. Back: No costovertebral angle tenderness to palpation. Neurologic Exam: Grossly nonfocal. Skin Exam: No rash noted. Intact skin that is warm and dry. Data Data Last Documented VS Vital Signs Date Time Temp Pulse Resp B/P (MAP) Pulse Ox O2 Delivery O2 Flow Rate FiO2 01/30/17 03:24 97.9 80 22 125/72 (89) 92 Orders Orders Complete Blood Count With Diff (01/30/17 03:36) Comprehensive Metabolic Panel (01/30/17 03:36) Lipase (01/30/17 03:36) Phenytoin (Dilantin) (01/30/17 03:36) Chest, Single Ap (01/30/17 03:36) Iv Access Insert/Monitor (01/30/17 03:36) Ecg Monitoring (01/30/17 03:36) Oximetry (01/30/17 03:36) Albuterol-Ipratropium Neb (Duoneb Neb) (01/30/17 03:45) Phenytoin (Dilantin) (01/30/17 05:00) Labs Laboratory Tests Test 01/30/17 03:40 White Blood Count 4.7 TH/MM3 Red Blood Count 4.20 MIL/MM3 Hemoglobin 14.3 GM/DL Hematocrit 41.5 % Mean Corpuscular Volume 99.0 FL Mean Corpuscular Hemoglobin 34.2 PG Mean Corpuscular Hemoglobin Concent 34.5 % Red Cell Distribution Width 13.8 % Platelet Count 155 TH/MM3 Mean Platelet Volume 10.2 FL Neutrophils (%) (Auto) 49.2 % Lymphocytes (%) (Auto) 39.9 % Monocytes (%) (Auto) 6.5 % Eosinophils (%) (Auto) 3.2 % Basophils (%) (Auto) 1.2 % Neutrophils # (Auto) 2.3 TH/MM3 Lymphocytes # (Auto) 1.9 TH/MM3 Monocytes # (Auto) 0.3 TH/MM3 Eosinophils # (Auto) 0.1 TH/MM3 Basophils # (Auto) 0.1 TH/MM3 CBC Comment DIFF FINAL Differential Comment Blood Urea Nitrogen 14 MG/DL Creatinine 0.80 MG/DL Random Glucose 86 MG/DL Total Protein 9.4 GM/DL Albumin 3.9 GM/DL Calcium Level 8.5 MG/DL Alkaline Phosphatase 97 U/L Aspartate Amino Transf (AST/SGOT) 82 U/L Alanine Aminotransferase (ALT/SGPT) 82 U/L Total Bilirubin 0.3 MG/DL Sodium Level 139 MEQ/L Potassium Level 4.9 MEQ/L Chloride Level 106 MEQ/L Carbon Dioxide Level 23.7 MEQ/L Anion Gap 9 MEQ/L Estimat Glomerular Filtration Rate 75 ML/MIN Lipase 226 U/L Phenytoin (Dilantin) Level LESS THAN 0.4 MCG/ML MDM Medical Decision Making Medical Screen Exam Complete: Yes Emergency Medical Condition: Yes Medical Record Reviewed: Yes Interpretation(s) Last Impressions Chest X-Ray 01/30/17 0336 Signed Impressions: Service Date/Time: Monday, January 30, 2017 03:53 - CONCLUSION: The lungs are clear. Yeyo Cadena MD Differential Diagnosis Medication noncompliance causing seizure activity, versus electrolyte abnormality Narrative Course During the course of the patients emergency department visit, the patients history, examination, and differential diagnosis were reviewed with the patient. The patient was placed on a pharmacy assistant with oximetry and frequent blood pressure monitoring. The patient had IV access obtained and blood work sent for analysis. Case management was consulted regarding this patient's care and difficulty reportedly getting her Dilantin prescription filled. The patient was initially provided a DuoNeb 1. The patient was given her first dose of Dilantin 300 mg by mouth here in the emergency department after her Dilantin level was undetectable. The patients laboratory studies were reviewed and remarkable for a CBC that is unremarkable, CMP is remarkable for a GFR 75, AST 82, ALT 82, lipase 226, Dilantin level less than 0.4 Radiology studies were reviewed and remarkable for a chest x-ray that shows no evidence of acute cardiopulmonary disease. The patient will be discharged with a prescription for Dilantin and instructions regarding following up with the [facility] for continued care. The patient is resting comfortably and feels better, is alert and in no distress. The patients results and examination findings were discussed with the patient. The repeat examination is unremarkable and benign. The history, exam, diagnostic testing, and current condition do not suggest any significant pathology to warrant further testing, continued ED treatment, admission, or surgical evaluation at this point. The vital signs have been stable. The patient does not have uncontrollable pain, intractable vomiting, or other significant symptoms. The patient's condition is stable and appropriate for discharge. The patient will pursue further outpatient evaluation with a primary care physician or other designated or consulting physician as indicated in the discharge instructions. The patient expressed understanding and was agreeable with this plan. Diagnosis Primary Impression: Seizure Additional Impression: Noncompliance with medication regimen Referrals: [facility] 2 days Patient Instructions: Epilepsy (ED), General Instructions, Generalized Tonic Clonic Seizures (ED) Med/Other Pt SpecificInfo: Prescription(s) given Scripts Phenytoin Extended (Dilantin) 100 Mg Cap 100 MG PO TID for Control Seizures, #90 CAP 0 Refills Prov: Crys Boucher MD 01/30/17 Disposition: 01 DISCHARGE HOME Condition: Stable Crys Boucher MD Jan 30, 2017 05:06
== END 2017-01-30 10:15 | disposition home or self-care (01) ==
LOC: NEPC 03:00
DX: G40.909 Epilepsy, unspecified, not intractable, without status epilepticus (principal); R05 Cough; R09.81 Nasal congestion; M25.511 Pain in right shoulder; M25.551 Pain in right hip; G89.29 Other chronic pain; R10.11 Right upper quadrant pain; I10 Essential (primary) hypertension; Z91.14 Patient's other noncompliance with medication regimen
CPT/HCPCS: 71010; 80053; 80185; 83690; 85025; 94664; 99284

== ENCOUNTER 2017-03-20 01:38 | Emergency (ER) | payer OTHER ==
[~2017-03-20] VITALS: Ht 177.8 cm; Wt 85.0 kg
[~2017-03-20 01:38] MED LIST changes: +DILA100C PO
[2017-03-20 01:45] VITALS: BP 164/98; PULSE 81; RESP 16; TEMP 97.9; O2SAT 99
[2017-03-20] MEDS ORDERED: SODIUM CHLOR 0.9% 1000 ML INJ 1,000 ML IV ONE (01:46)
[2017-03-20 01:50] VITALS: RESP 16; O2SAT 99
--- NOTE | 2017-03-20 01:53 | PD ---
HPI Chief Complaint: Seizure Time Seen by Provider: 01:42 Travel History International Travel<30 days: No Contact w/Intl Traveler<30days: No Traveled to known affect area: No History of Present Illness HPI The patient is a 52-year-old female who presents to the emergency department via EMS for right shoulder pain and seizure. The patient has a history of seizure disorders, has not been taking his Dilantin for the last several months. The patient states she had 2 seizures earlier today, during one of the seizure she ended her right shoulder. She has a history of previous right shoulder surgery from previous trauma. She denies any head injury, neck pain, chest, shortness of breath, nausea, vomiting, diarrhea, or abdominal pain. The patient has been noncompliant with her Dilantin for the last 6 months secondary to financial issues. She states she has been drinking alcohol earlier tonight. She denies any current illicit drug use. PFSH Past Medical History Hx Anticoagulant Therapy: No Blood Disorders: No Bipolar Disorder: Yes Anxiety: Yes Cancer: No Cardiovascular Problems: Yes Chemotherapy: No Chest Pain: Yes Cerebrovascular Accident: No Diabetes: No Diminished Hearing: Yes ([place] RIGHT EAR) Gastrointestinal Disorders: No Genitourinary: Yes Headaches: Yes Hypertension: Yes Implanted Vascular Access Dvce: No Musculoskeletal: Yes Neurologic: Yes Psychiatric: Yes Reproductive: No Respiratory: No Immunizations Current: Yes Migraines: Yes Radiation Therapy: No Seizures: Yes PNEUMOCCOCAL Vaccine (Year): 3 ?: Not Menopausal: Yes : 3 Para: 0 Miscarriage: 0 : 3 Past Surgical History Abdominal Surgery: Yes (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 ) AICD: No Arteriovenous Shunt: No Cholecystectomy: Yes Hysterectomy: Yes (PARTIAL) Insulin Pump: No Joint Replacement: No Pacemaker: No Other Surgery: Yes Social History Alcohol Use: Yes (daily.) Tobacco Use: Yes (1.5 PPD) Substance Use: No Allergies-Medications (Allergen,Severity, Reaction): Coded Allergies: codeine (Unverified Allergy, Severe, Nausea/Vomiting, 10/06/16) Reported Meds & Prescriptions Reported Meds & Active Scripts Active Dilantin (Phenytoin Extended) 100 Mg Cap 100 Mg PO TID Review of Systems Except as stated in HPI: all other systems reviewed are Neg General / Constitutional: No: Fever HENT: No: Headaches, Lightheadedness Cardiovascular: No: Chest Pain or Discomfort Respiratory: No: Shortness of Breath Gastrointestinal: No: Nausea, Vomiting, Abdominal Pain Musculoskeletal: Positive: Limited ROM, Pain Neurologic: Positive: Seizures Psychiatric: Positive: Substance Abuse (alcohol use tonight) Physical Exam Narrative GENERAL: Awake, alert, nontoxic-appearing 52-year-old female who appears her stated age and is in no acute respiratory distress. SKIN: Focused skin assessment warm/dry. HEAD: Atraumatic. Normocephalic. EYES: Right pupils 4 mm. Left eye has an eye patch over it. ENT: No nasal bleeding or discharge. Mucous membranes pink and moist. Breath smells of alcohol. NECK: Trachea midline. No JVD. CARDIOVASCULAR: Regular rate and rhythm. No murmur appreciated. RESPIRATORY: No accessory muscle use. Clear to auscultation. Breath sounds equal bilaterally. MUSCULOSKELETAL: Well-healed scar over the anterior aspect the right shoulder. Mild tenderness. NEUROLOGICAL: Awake and alert. No obvious cranial nerve deficits. Motor grossly within normal limits. Normal speech. Nonfocal. Oriented 4. Follows commands without difficulty. PSYCHIATRIC: Appropriate mood and affect; insight and judgment normal. Data Data Last Documented VS Vital Signs Date Time Temp Pulse Resp B/P (MAP) Pulse Ox O2 Delivery O2 Flow Rate FiO2 03/20/17 01:50 16 99 Room Air 03/20/17 01:45 97.9 81 164/98 (120) Orders Orders Complete Blood Count With Diff (03/20/17 01:46) Alcohol (Ethanol) (03/20/17 01:46) Phenytoin (Dilantin) (03/20/17 01:46) Blood Glucose (03/20/17 01:46) Ecg Monitoring (03/20/17 01:46) Iv Access Insert/Monitor (03/20/17 01:46) Oximetry (03/20/17 01:46) Comprehensive Metabolic Panel (03/20/17 01:46) Sodium Chlor 0.9% 1000 Ml Inj (Ns 1000 M (03/20/17 01:46) Sodium Chloride 0.9% Flush (Ns Flush) (03/20/17 02:00) Shoulder, Limited(2vws) (03/20/17 ) Acetaminophen (Tylenol) (03/20/17 02:00) Labs Laboratory Tests Test 03/20/17 01:55 White Blood Count 5.8 TH/MM3 Red Blood Count 3.94 MIL/MM3 Hemoglobin 13.4 GM/DL Hematocrit 37.8 % Mean Corpuscular Volume 95.8 FL Mean Corpuscular Hemoglobin 33.9 PG Mean Corpuscular Hemoglobin Concent 35.4 % Red Cell Distribution Width 13.8 % Platelet Count 161 TH/MM3 Mean Platelet Volume 9.4 FL Neutrophils (%) (Auto) 58.2 % Lymphocytes (%) (Auto) 24.3 % Monocytes (%) (Auto) 7.8 % Eosinophils (%) (Auto) 5.2 % Basophils (%) (Auto) 4.5 % Neutrophils # (Auto) 3.4 TH/MM3 Lymphocytes # (Auto) 1.4 TH/MM3 Monocytes # (Auto) 0.5 TH/MM3 Eosinophils # (Auto) 0.3 TH/MM3 Basophils # (Auto) 0.3 TH/MM3 CBC Comment DIFF FINAL Differential Comment Blood Urea Nitrogen 16 MG/DL Creatinine 0.81 MG/DL Random Glucose 87 MG/DL Total Protein 9.0 GM/DL Albumin 4.1 GM/DL Calcium Level 8.5 MG/DL Alkaline Phosphatase 79 U/L Aspartate Amino Transf (AST/SGOT) 111 U/L Alanine Aminotransferase (ALT/SGPT) 130 U/L Total Bilirubin 0.3 MG/DL Sodium Level 140 MEQ/L Potassium Level 4.4 MEQ/L Chloride Level 107 MEQ/L Carbon Dioxide Level 25.2 MEQ/L Anion Gap 8 MEQ/L Estimat Glomerular Filtration Rate 74 ML/MIN Phenytoin (Dilantin) Level 0.4 MCG/ML Ethyl Alcohol Level 191 MG/DL MDM Medical Decision Making Medical Screen Exam Complete: Yes Emergency Medical Condition: Yes Medical Record Reviewed: Yes Interpretation(s) Laboratory Tests Test 03/20/17 01:55 White Blood Count 5.8 TH/MM3 Red Blood Count 3.94 MIL/MM3 Hemoglobin 13.4 GM/DL Hematocrit 37.8 % Mean Corpuscular Volume 95.8 FL Mean Corpuscular Hemoglobin 33.9 PG Mean Corpuscular Hemoglobin Concent 35.4 % Red Cell Distribution Width 13.8 % Platelet Count 161 TH/MM3 Mean Platelet Volume 9.4 FL Neutrophils (%) (Auto) 58.2 % Lymphocytes (%) (Auto) 24.3 % Monocytes (%) (Auto) 7.8 % Eosinophils (%) (Auto) 5.2 % Basophils (%) (Auto) 4.5 % Neutrophils # (Auto) 3.4 TH/MM3 Lymphocytes # (Auto) 1.4 TH/MM3 Monocytes # (Auto) 0.5 TH/MM3 Eosinophils # (Auto) 0.3 TH/MM3 Basophils # (Auto) 0.3 TH/MM3 CBC Comment DIFF FINAL Differential Comment Blood Urea Nitrogen 16 MG/DL Creatinine 0.81 MG/DL Random Glucose 87 MG/DL Total Protein 9.0 GM/DL Albumin 4.1 GM/DL Calcium Level 8.5 MG/DL Alkaline Phosphatase 79 U/L Aspartate Amino Transf (AST/SGOT) 111 U/L Alanine Aminotransferase (ALT/SGPT) 130 U/L Total Bilirubin 0.3 MG/DL Sodium Level 140 MEQ/L Potassium Level 4.4 MEQ/L Chloride Level 107 MEQ/L Carbon Dioxide Level 25.2 MEQ/L Anion Gap 8 MEQ/L Estimat Glomerular Filtration Rate 74 ML/MIN Phenytoin (Dilantin) Level 0.4 MCG/ML Ethyl Alcohol Level 191 MG/DL X-ray of the right shoulder reveals remote proximal humeral fracture with fixation. No acute fracture seen. Differential Diagnosis Differential diagnosis includes seizure disorder, alcohol intoxication, alcohol withdrawal, subtherapeutic Dilantin level, non-compliance, hyponatremia, hypocalcemia, hypoglycemia. Narrative Course IV was established, labs are drawn and sent, and the patient was placed on cardiac telemetry monitoring and continuous pulse oximetry monitoring. Dilantin level was sent to lab. The patient was administered IV fluids. X-ray of the right shoulder was obtained. Alcohol level was elevated at 191. Sodium is normal. Dilantin is subtherapeutic. Patient states she is not compliant with Dilantin for the last 6 months, states she will not take her medicines. Patient will be prescribed her Dilantin, she is advised to follow-up at the local clinic. Return if symptoms worsen or progress. Diagnosis Primary Impression: Alcohol intoxication Qualified Codes: F10.920 - Alcohol use, unspecified with intoxication, uncomplicated Additional Impressions: Seizure Right shoulder pain Qualified Codes: M25.511 - Pain in right shoulder; G89.29 - Other chronic pain Referrals: [facility] as needed Patient Instructions: General Instructions Additional Instructions: Decrease alcohol intake. Tylenol as needed for pain. Follow-up with a primary physician. Dilantin as directed. Med/Other Pt SpecificInfo: Prescription(s) given Scripts Phenytoin Extended (Dilantin) 100 Mg Cap 300 MG PO HS for Control Seizures for 30 Days, #90 CAP 0 Refills Prov: Victor Manuel Mera MD 03/20/17 Disposition: 01 DISCHARGE HOME Condition: Stable Victor Manuel Mera MD Mar 20, 2017 01:53
[2017-03-20] MEDS ORDERED: SODIUM CHLORIDE 0.9% FLUSH 10 ML FLUSH IVF PRN (02:00)
[2017-03-20] MEDS ORDERED: ACETAMINOPHEN 325 MG TAB PO ONE (02:00)
[2017-03-20 02:11] LABS: AUTOMATED NEUTROPHIL # 3.4 TH/MM3 (1.8-7.7); BASOPHIL # 0.3 TH/MM3 (0-0.2); BASOPHIL % 4.5 % (0.0-2.0); EOSINOPHIL # 0.3 TH/MM3 (0-0.4); EOSINOPHIL % 5.2 % (0.0-4.0); HEMATOCRIT 37.8 % (35.0-46.0); HEMOGLOBIN 13.4 GM/DL (11.6-15.3); LYMPH % 24.3 % (9.0-44.0); LYMPHOCYTE # 1.4 TH/MM3 (1.0-4.8); MEAN CELL VOLUME 95.8 FL (80.0-100.0); MEAN CORPUSCULAR HEMOGLOBIN 33.9 PG (27.0-34.0); MEAN CORPUSCULAR HGB CONC 35.4 % (32.0-36.0); MEAN PLATELET VOLUME 9.4 FL (7.0-11.0); MONO % 7.8 % (0.0-8.0); MONOCYTE # 0.5 TH/MM3 (0-0.9); NEUT % 58.2 % (16.0-70.0); PLATELET COUNT 161 TH/MM3 (150-450); RED BLOOD COUNT 3.94 MIL/MM3 (4.00-5.30); RED CELL DISTRIBUTION WIDTH 13.8 % (11.6-17.2); WHITE BLOOD COUNT 5.8 TH/MM3 (4.0-11.0)
[2017-03-20 02:24] LABS: ALBUMIN 4.1 GM/DL (3.4-5.0); ALKALINE PHOSPHATASE 79 U/L (45-117); ALT (GPT) 130 U/L (10-53); AST (GOT) 111 U/L (15-37); BICARBONATE 25.2 MEQ/L (21.0-32.0); BLOOD UREA NITROGEN 16 MG/DL (7-18); CALCIUM 8.5 MG/DL (8.5-10.1); CHLORIDE 107 MEQ/L (98-107); CREATININE 0.81 MG/DL (0.50-1.00); GLOMERULAR FILTRATION RATE 74 ML/MIN (>89); GLUCOSE,RANDOM 87 MG/DL (74-106); PHENYTOIN (DILANTIN) 0.4 MCG/ML (10.0-20.0); SODIUM (NA) 140 MEQ/L (136-145); TOTAL BILIRUBIN ADULT 0.3 MG/DL (0.2-1.0)
--- NOTE | 2017-03-20 02:25 | RADRPT ---
EXAM DATE/TIME: 03/20/2017 01:55 [place] COMPARISON: No previous studies available for comparison. INDICATIONS : Right shoulder pain after falling this evening. MEDICAL HISTORY : Arthritis. SURGICAL HISTORY : ORIF shoulder. ENCOUNTER: Initial ACUITY: 1 day PAIN SCORE: 8/10 LOCATION: Right shoulder. FINDINGS: There is a prior fracture of the proximal right humerus which is status post plate and screw fixation and wire fixation. No acute fracture is seen. There is chronic arthropathy at the right shoulder leonor nt. CONCLUSION: 1. Remote proximal humeral fracture with fixation. No acute fracture is seen. Denys Little MD on March 20, 2017 at 2:21 Board Certified Radiologist. This report was verified electronically.
[2017-03-20] MEDS ORDERED: DILA100C PO (02:32)
[2017-03-20 07:16] VITALS: BP 146/80; PULSE 70; RESP 18; TEMP 98; O2SAT 97
== END 2017-03-20 07:16 | disposition home or self-care (01) ==
LOC: NEPE 01:38
DX: F10.129 Alcohol abuse with intoxication, unspecified (principal); M25.511 Pain in right shoulder; G89.29 Other chronic pain; G40.909 Epilepsy, unspecified, not intractable, without status epilepticus; F17.200 Nicotine dependence, unspecified, uncomplicated; Y90.6 Blood alcohol level of 120-199 mg/100 ml
CPT/HCPCS: 73030; 80053; 80185; 80307; 85025; 96360; 99284; J7030

== ENCOUNTER 2017-03-21 16:19 | Emergency (ER) | payer OTHER ==
[~2017-03-21] VITALS: Ht 177.8 cm; Wt 84.0 kg
[~2017-03-21 16:19] MED LIST changes: -BACT800T5 PO; -CEPH-460 PO; -DILA30CA PO; -PERM1KIT TOPICAL
[2017-03-21 16:26] VITALS: BP 128/87; PULSE 17; PULSE 84; RESP 20; TEMP 98.2; O2SAT 98
== END 2017-03-21 18:33 | disposition left against medical advice (07) ==
LOC: NED 16:19
DX: R56.9 Unspecified convulsions (principal); Z53.21 Procedure and treatment not carried out due to patient leaving prior to being seen by health care provider
CPT/HCPCS: 99281

== ENCOUNTER 2017-03-26 17:12 | Emergency (ER) | payer SELFPAY ==
[2017-03-26 17:18] VITALS: BP 144/68; PULSE 78; RESP 18; TEMP 97.8; O2SAT 99
== END 2017-03-26 17:22 | disposition left against medical advice (07) ==
LOC: NEDAMB 17:12
DX: R56.9 Unspecified convulsions (principal)
CPT/HCPCS: 99281

== ENCOUNTER 2017-04-14 20:28 | Emergency (ER) | payer SELFPAY ==
[~2017-04-14] VITALS: Ht 162.6 cm; Wt 75.0 kg
[2017-04-14 20:36] VITALS: BP 101/80; PULSE 87; RESP 16; O2SAT 95
--- NOTE | 2017-04-14 20:43 | PD ---
HPI Chief Complaint: Seizure Time Seen by Provider: 20:43 (Narcisa Montemayor) Time Seen by Provider: 20:39 (Crys Boucher MD) Travel History International Travel<30 days: No Contact w/Intl Traveler<30days: No Traveled to known affect area: No (Narcisa Montemayor) PFSH Past Medical History Hx Anticoagulant Therapy: No Blood Disorders: No Bipolar Disorder: Yes Anxiety: Yes Cancer: No Cardiovascular Problems: Yes Chemotherapy: No Chest Pain: Yes Cerebrovascular Accident: No Diabetes: No Diminished Hearing: Yes ([facility] RIGHT EAR) Gastrointestinal Disorders: No Genitourinary: Yes Headaches: Yes Hypertension: Yes Implanted Vascular Access Dvce: No Musculoskeletal: Yes Neurologic: Yes Psychiatric: Yes Reproductive: No Respiratory: No Immunizations Current: Yes Migraines: Yes Radiation Therapy: No Seizures: Yes PNEUMOCCOCAL Vaccine (Year): 3 ?: Not Menopausal: Yes : 3 Para: 0 Miscarriage: 0 : 3 (Narcisa Montemayor) Past Surgical History Abdominal Surgery: Yes (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 ) AICD: No Arteriovenous Shunt: No Cholecystectomy: Yes Hysterectomy: Yes (PARTIAL) Insulin Pump: No Joint Replacement: No Pacemaker: No Other Surgery: Yes (Narcisa Montemayor) Social History Alcohol Use: Yes (daily.) Tobacco Use: Yes (1.5 PPD) Substance Use: No (Narcisa Montemayor) Allergies-Medications (Allergen,Severity, Reaction): Coded Allergies: codeine (Unverified Allergy, Severe, Nausea/Vomiting, 04/14/17) Reported Meds & Prescriptions Reported Meds & Active Scripts Active Dilantin (Phenytoin Extended) 100 Mg Cap 300 Mg PO HS 30 Days Dilantin (Phenytoin Extended) 100 Mg Cap 100 Mg PO TID (Crys Boucher MD) Data Data Last Documented VS Vital Signs Date Time Temp Pulse Resp B/P (MAP) Pulse Ox O2 Delivery O2 Flow Rate FiO2 04/14/17 20:36 87 16 101/80 (87) 95 Room Air (Crys Boucher MD) Orders Orders Complete Blood Count With Diff (04/14/17 20:57) Basic Metabolic Panel (Bmp) (04/14/17 20:57) Magnesium (Mg) (04/14/17 20:57) Iv Access Insert/Monitor (04/14/17 20:57) Ecg Monitoring (04/14/17 20:57) Oximetry (04/14/17 20:57) Sodium Chlor 0.9% 1000 Ml Inj (Ns 1000 M (04/14/17 21:00) Thiamine Inj (Thiamine Inj) (04/14/17 21:00) (Crys Boucher MD) Labs Laboratory Tests Test 04/14/17 21:06 White Blood Count 5.0 TH/MM3 Red Blood Count 3.89 MIL/MM3 Hemoglobin 13.0 GM/DL Hematocrit 38.1 % Mean Corpuscular Volume 98.0 FL Mean Corpuscular Hemoglobin 33.5 PG Mean Corpuscular Hemoglobin Concent 34.2 % Red Cell Distribution Width 13.7 % Platelet Count 153 TH/MM3 Mean Platelet Volume 10.1 FL Neutrophils (%) (Auto) 44.2 % Lymphocytes (%) (Auto) 39.9 % Monocytes (%) (Auto) 8.9 % Eosinophils (%) (Auto) 6.0 % Basophils (%) (Auto) 1.0 % Neutrophils # (Auto) 2.2 TH/MM3 Lymphocytes # (Auto) 2.0 TH/MM3 Monocytes # (Auto) 0.4 TH/MM3 Eosinophils # (Auto) 0.3 TH/MM3 Basophils # (Auto) 0.0 TH/MM3 CBC Comment DIFF FINAL Differential Comment (Crys Boucher MD) Narcisa Montemayor Apr 14, 2017 20:43 Crys Boucher MD Apr 14, 2017 21:03
[2017-04-14] MEDS ORDERED: THIAMINE INJ 100 MG in SODIUM CHLORIDE 0.9% INJ 100 ML IV ONE (21:00)
[2017-04-14] MEDS ORDERED: SODIUM CHLOR 0.9% 1000 ML INJ 1,000 ML IV SCH (21:00)
[2017-04-14 21:32] LABS: AUTOMATED NEUTROPHIL # 2.2 TH/MM3 (1.8-7.7); EOSINOPHIL # 0.3 TH/MM3 (0-0.4); HEMATOCRIT 38.1 % (35.0-46.0); LYMPH % 39.9 % (9.0-44.0); MEAN CORPUSCULAR HEMOGLOBIN 33.5 PG (27.0-34.0); MEAN CORPUSCULAR HGB CONC 34.2 % (32.0-36.0); MEAN PLATELET VOLUME 10.1 FL (7.0-11.0); MONO % 8.9 % (0.0-8.0); MONOCYTE # 0.4 TH/MM3 (0-0.9); NEUT % 44.2 % (16.0-70.0); PLATELET COUNT 153 TH/MM3 (150-450); RED BLOOD COUNT 3.89 MIL/MM3 (4.00-5.30); RED CELL DISTRIBUTION WIDTH 13.7 % (11.6-17.2)
[2017-04-14 22:03] LABS: BICARBONATE 23.4 MEQ/L (21.0-32.0); CALCIUM 8.5 MG/DL (8.5-10.1); CREATININE 0.86 MG/DL (0.50-1.00); MAGNESIUM 2.2 MG/DL (1.5-2.5)
--- NOTE | 2017-04-14 22:04 | PD ---
HPI Chief Complaint: Seizure Time Seen by Provider: 20:39 Travel History International Travel<30 days: No Contact w/Intl Traveler<30days: No Traveled to known affect area: No History of Present Illness HPI The patient is a 52 year old female who presents to the [facility] emergency department with a history of seizure that occurred earlier today. She reports that she has been drinking more alcohol than usual over the last 2 days and has a history of seizures when she drinks alcohol. She reports that she is also supposed to be taking Dilantin, however she has not been on this medication for the last few months. The patient reports that she normally drinks 1-2 drinks per day, however today she drank at least 8 alcoholic beverages. The patient denies having any new pain related to the seizure. She reports that she has chronic right shoulder pain after an ORIF. She denies having any known recent fevers, worsening cough or congestion, neck pain, chest pain, worsening shortness of breath, abdominal pain, vomiting, diarrhea, urinary symptoms, or other neurologic symptoms. She denies biting her tongue or losing control of her bowel or bladder. [facility] Past Medical History Narrative Medical The patient's past medical history is significant for traumatic brain injury, history of seizure disorder, alcohol abuse, tobacco abuse, chronic right arm pain, chronic right hip pain, arthritis. 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 Hx Anticoagulant Therapy: No Blood Disorders: No Bipolar Disorder: Yes Anxiety: Yes Cancer: No Cardiovascular Problems: Yes Chemotherapy: No Chest Pain: Yes Cerebrovascular Accident: No Diabetes: No Diminished Hearing: Yes ([facility] RIGHT EAR) Gastrointestinal Disorders: No Genitourinary: Yes Headaches: Yes Hypertension: Yes Implanted Vascular Access Dvce: No Musculoskeletal: Yes Neurologic: Yes Psychiatric: Yes Reproductive: No Respiratory: No Immunizations Current: Yes Migraines: Yes Radiation Therapy: No Seizures: Yes PNEUMOCCOCAL Vaccine (Year): 3 ?: Not Menopausal: Yes : 3 Para: 0 Miscarriage: 0 : 3 Past Surgical History Narrative Surgical The patient's past surgical history is significant for right shoulder ORIF, hysterectomy, cholecystectomy, abdominal surgery as an . Abdominal Surgery: Yes (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 ) AICD: No Arteriovenous Shunt: No Cholecystectomy: Yes Hysterectomy: Yes (PARTIAL) Insulin Pump: No Joint Replacement: No Pacemaker: No Other Surgery: Yes Social History Alcohol Use: Yes (daily.) Tobacco Use: Yes (1.5 PPD) Substance Use: No Allergies-Medications (Allergen,Severity, Reaction): Coded Allergies: codeine (Unverified Allergy, Severe, Nausea/Vomiting, 04/14/17) Reported Meds & Prescriptions Reported Meds & Active Scripts Active Dilantin (Phenytoin Extended) 100 Mg Cap 300 Mg PO HS 30 Days Dilantin (Phenytoin Extended) 100 Mg Cap 100 Mg PO TID Review of Systems Except as stated in HPI: all other systems reviewed are Neg General / Constitutional: No: Fever Eyes: No: Visual changes HENT: No: Headaches Cardiovascular: No: Chest Pain or Discomfort Respiratory: No: Shortness of Breath Gastrointestinal: No: Abdominal Pain Genitourinary: No: Dysuria Musculoskeletal: No: Pain Skin: No Rash Neurologic: Positive: Seizures, No: Weakness, Focal Abnormalities, Change in Mentation, Slurred Speech, Sensory Disturbance Psychiatric: No: Depression Endocrine: No: Polydipsia Hematologic/Lymphatic: No: Easy Bruising Physical Exam Narrative General: The patient is a well-developed well-nourished female, disheveled appearing on examination, in no acute distress. Head and Neck exam: Head is normocephalic atraumatic. Eyes: EOMI, pupils are equal round and reactive to light. Nose: Midline septum with pink mucous membranes Mouth: Dentition unremarkable. Moist mucus membranes. Posterior oropharynx is not erythematous. No tonsillar hypertrophy. Uvula midline. Airway patent. Neck: No palpable lymphadenopathy. No nuchal rigidity. No thyromegaly. Cardiovascular: Regular rate and rhythm without murmurs, gallops, or rubs. Lungs: Clear to auscultation bilaterally. No wheezes, rhonchi, or rales. Abdomen: Soft, without tenderness to palpation in all 4 quadrants of the abdomen. No guarding, rebound, or rigidity. Normal bowel sounds are audible. No tenderness on palpation of McBurney's point. Negative Sinclair sign. Extremities: No clubbing, cyanosis, or edema. 2+ pulses in all 4 extremities. No calf tenderness on palpation. No new extremity pain on palpation. No crepitus or step-off. She has chronic decreased range of motion with flexion of her right shoulder. Back: No spinous process tenderness to palpation. No costovertebral angle tenderness to palpation. Neurologic Exam: Cranial nerves 2-12 were intact on exam. Strength is 5/5 in all 4 extremities. No sensory deficits noted. Skin Exam: No rash noted. Intact skin that is warm and dry. Data Data Last Documented VS Vital Signs Date Time Temp Pulse Resp B/P (MAP) Pulse Ox O2 Delivery O2 Flow Rate FiO2 04/14/17 22:07 98 Room Air 04/14/17 20:36 87 16 Orders Orders Complete Blood Count With Diff (04/14/17 20:57) Basic Metabolic Panel (Bmp) (04/14/17 20:57) Magnesium (Mg) (04/14/17 20:57) Iv Access Insert/Monitor (04/14/17 20:57) Ecg Monitoring (04/14/17 20:57) Oximetry (04/14/17 20:57) Sodium Chlor 0.9% 1000 Ml Inj (Ns 1000 M (04/14/17 21:00) Thiamine Inj (Thiamine Inj) (04/14/17 21:00) Chest, Single Ap (04/14/17 22:14) Labs Laboratory Tests Test 04/14/17 21:06 White Blood Count 5.0 TH/MM3 Red Blood Count 3.89 MIL/MM3 Hemoglobin 13.0 GM/DL Hematocrit 38.1 % Mean Corpuscular Volume 98.0 FL Mean Corpuscular Hemoglobin 33.5 PG Mean Corpuscular Hemoglobin Concent 34.2 % Red Cell Distribution Width 13.7 % Platelet Count 153 TH/MM3 Mean Platelet Volume 10.1 FL Neutrophils (%) (Auto) 44.2 % Lymphocytes (%) (Auto) 39.9 % Monocytes (%) (Auto) 8.9 % Eosinophils (%) (Auto) 6.0 % Basophils (%) (Auto) 1.0 % Neutrophils # (Auto) 2.2 TH/MM3 Lymphocytes # (Auto) 2.0 TH/MM3 Monocytes # (Auto) 0.4 TH/MM3 Eosinophils # (Auto) 0.3 TH/MM3 Basophils # (Auto) 0.0 TH/MM3 CBC Comment DIFF FINAL Differential Comment Blood Urea Nitrogen 11 MG/DL Creatinine 0.86 MG/DL Random Glucose 96 MG/DL Calcium Level 8.5 MG/DL Magnesium Level 2.2 MG/DL Sodium Level 142 MEQ/L Potassium Level 4.0 MEQ/L Chloride Level 111 MEQ/L Carbon Dioxide Level 23.4 MEQ/L Anion Gap 8 MEQ/L Estimat Glomerular Filtration Rate 69 ML/MIN MDM Medical Decision Making Medical Screen Exam Complete: Yes Emergency Medical Condition: Yes Medical Record Reviewed: Yes Differential Diagnosis Seizure activity related to noncompliance with antiepileptic medication, versus alcohol related seizure, versus electrolyte derangement Narrative Course During the course of the patient's emergency department visit, the patient's history, examination, and differential diagnosis were reviewed with the patient. The patient was placed on a regional telecommunications specialist with oximetry and frequent blood pressure monitoring. The patient had IV access obtained and blood work sent for analysis. The patient was initially provided [-]. The patient's laboratory studies were reviewed and remarkable for [-]. Radiology studies were reviewed and remarkable for [-] Diagnosis Primary Impression: Seizure disorder Additional Impressions: H/O medication noncompliance Alcohol abuse Referrals: [facility] Patient Instructions: Abuse of Alcohol (ED), General Instructions, Generalized Tonic Clonic Seizures (ED) Med/Other Pt SpecificInfo: Prescription(s) given Scripts Phenytoin Extended (Dilantin) 100 Mg Cap 300 MG PO HS for Control Seizures for 30 Days, #90 CAP 0 Refills Prov: Crys Boucher MD 04/14/17 Disposition: 01 DISCHARGE HOME Condition: Stable Crys Boucher MD Apr 14, 2017 22:04
[2017-04-14 22:07] VITALS: O2SAT 98
--- NOTE | 2017-04-14 22:43 | RADRPT ---
EXAM DATE/TIME: 04/14/2017 22:30 [facility] COMPARISON: CHEST SINGLE AP, January 30, 2017, 3:53. INDICATIONS : Short of breath. MEDICAL HISTORY : None. SURGICAL HISTORY : None. ENCOUNTER: Initial ACUITY: 1 day PAIN SCORE: 0/10 LOCATION: Bilateral chest FINDINGS: Minimal basilar atelectasis. No consolidation or effusion. Previous right humeral fracture with fixat ion. Heart size upper limits normal. Mildly tortuous aorta. CONCLUSION: 1. Minimal basilar atelectasis. No effusion. Denys Little MD on April 14, 2017 at 22:41 Board Certified Radiologist. This report was verified electronically.
[2017-04-14] MEDS ORDERED: DILA100C PO (23:08)
[2017-04-14] MEDS ORDERED: PHENYTOIN SODIUM 100 MG CAP PO ONE (23:15)
== END 2017-04-14 23:31 | disposition home or self-care (01) ==
LOC: NEPE 20:28
DX: G40.909 Epilepsy, unspecified, not intractable, without status epilepticus (principal); F10.10 Alcohol abuse, uncomplicated; F31.9 Bipolar disorder, unspecified; F41.9 Anxiety disorder, unspecified; I10 Essential (primary) hypertension; M19.90 Unspecified osteoarthritis, unspecified site; G89.29 Other chronic pain; F17.200 Nicotine dependence, unspecified, uncomplicated; Z91.14 Patient's other noncompliance with medication regimen
CPT/HCPCS: 71045; 80048; 83735; 85025; 96374; 99284; J3411; J7030

== ENCOUNTER 2017-04-15 16:14 | Emergency (ER) | payer SELFPAY ==
[~2017-04-15] VITALS: Ht 177.8 cm; Wt 80.0 kg
[2017-04-15 17:05] VITALS: BP 115/81; PULSE 85; RESP 16; TEMP 98.7; O2SAT 99
--- NOTE | 2017-04-15 18:26 | PD ---
HPI Chief Complaint: Seizure Time Seen by Provider: 18:04 Travel History International Travel<30 days: No Contact w/Intl Traveler<30days: No Traveled to known affect area: No History of Present Illness HPI 52-year-old female presents to the emergency department via EMS for evaluation after she states she had a seizure today. The patient is agitated. She is upset that I woke her up to talk to her. She started calling me "bitch" and stating "fuck you". The patient states that she had a seizure today. She does state that she is on Dilantin, but has not filled her prescription because "I cannot afford it". The patient is alert and oriented. She is ambulatory with a steady gait. The patient is agitated and states that she does not want to stay. My exam and history are limited due to the fact that she insists on leaving AGAINST MEDICAL ADVICE. PFSH Past Medical History Hx Anticoagulant Therapy: No Blood Disorders: No Bipolar Disorder: Yes Anxiety: Yes Cancer: No Cardiovascular Problems: Yes Chemotherapy: No Chest Pain: Yes Cerebrovascular Accident: No Diabetes: No Diminished Hearing: Yes ([facility] RIGHT EAR) Gastrointestinal Disorders: No Genitourinary: Yes Headaches: Yes Hypertension: Yes Implanted Vascular Access Dvce: No Musculoskeletal: Yes Neurologic: Yes Psychiatric: Yes Reproductive: No Respiratory: No Immunizations Current: Yes Migraines: Yes Radiation Therapy: No Seizures: Yes PNEUMOCCOCAL Vaccine (Year): 3 ?: Not Menopausal: Yes : 3 Para: 0 Miscarriage: 0 : 3 Past Surgical History Abdominal Surgery: Yes (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 INFANT) AICD: No Arteriovenous Shunt: No Cholecystectomy: Yes Hysterectomy: Yes (PARTIAL) Insulin Pump: No Joint Replacement: No Pacemaker: No Other Surgery: Yes Social History Alcohol Use: Yes (daily.) Tobacco Use: Yes (1.5 PPD) Substance Use: No Allergies-Medications (Allergen,Severity, Reaction): Coded Allergies: codeine (Unverified Allergy, Severe, Nausea/Vomiting, 04/14/17) Reported Meds & Prescriptions Reported Meds & Active Scripts Active Dilantin (Phenytoin Extended) 100 Mg Cap 300 Mg PO HS 30 Days Dilantin (Phenytoin Extended) 100 Mg Cap 100 Mg PO TID Review of Systems ROS Limitations: Uncooperative Except as stated in HPI: all other systems reviewed are Neg Physical Exam Narrative GENERAL: Unkempt female patient, afebrile. Vital signs are stable. Patient's slurred and oriented to person, place, time. SKIN: Focused skin assessment warm/dry. HEAD: Normocephalic. Atraumatic. EYES: No scleral icterus. No injection or drainage. NECK: Supple, trachea midline. No JVD or lymphadenopathy. RESPIRATORY: No accessory muscle use. MUSCULOSKELETAL: No cyanosis, or edema. BACK: Nontender without obvious deformity. No CVA tenderness. Data Data Last Documented VS Vital Signs Date Time Temp Pulse Resp B/P (MAP) Pulse Ox O2 Delivery O2 Flow Rate FiO2 04/15/17 17:05 98.7 85 16 115/81 (92) 99 Room Air MDM Medical Decision Making Medical Screen Exam Complete: Yes Emergency Medical Condition: Yes Medical Record Reviewed: Yes Differential Diagnosis Recurrent seizure versus medication noncompliance versus electrolyte abnormality Narrative Course 52-year-old female presents to the emergency department for evaluation after she had a seizure. Patient has history of seizures. She is agitated and upset that I woke her up cursing and using foul language. The patient refuses to let me examine her and insisted on leaving AGAINST MEDICAL ADVICE. She is aware that I cannot determine if there is anything wrong or she will not let me examine her. She appears capable of making her own decisions. She is ambulatory with a steady gait and alert and oriented. AMA: The risks of leaving against medical advice without further evaluation treatment were discussed with the patient. These risks include cardiac dysfunction, cardiac dysrhythmia, possible heart attack, possible stroke or . The patient indicated understanding of these risks and appeared to have the capacity to make this decision. Diagnosis Primary Impression: Left against medical advice Disposition: 07 AGAINST MEDICAL ADVICE Aletha Onofre Apr 15, 2017 18:26
== END 2017-04-15 18:41 | disposition left against medical advice (07) ==
LOC: NEDAMB 16:14
DX: R56.9 Unspecified convulsions (principal); F17.200 Nicotine dependence, unspecified, uncomplicated
CPT/HCPCS: 99281